=== PATIENT | female | born 1965 | race Caucasian/White ===

== ENCOUNTER → 2016-08-25 | Outpatient (CLI) | payer OTHER ==
[~2016-08-25] MED LIST: ARTHROTEC PO; ARTHTAB4 PO; BACL10TA2 OR; FLEXERIL OR; IBUP400T OR; IBUP80TA PO; LIDO1OIN2 TOP; LIDO5DIS EXT; MULTIVIT; MULTIVIT PO; NAPR500T OR; NEUR300C OR; NUCYNTA; OXYC5CAP4 OR; PERC5TAB8 OR; ROBA500T OR; SM I100T PO; SOMA350T PO; TIZA2CAP3 PO; TIZA4TAB OR; ZANA4CAP; biofreeze TD
--- NOTE | 2016-08-29 23:43 | ECWPNPC ---
PATIENT NAME: SHRAI ALVARADO : 1965 GENDER: FEMALE VISIT DATE: 08/25/2016 DISCHARGE DATE: 08/25/16 1523 VISIT LOCKED DATE TIME: PHYSICIAN: KENRICK VERNON RESOURCE: KENRICK VERNON REASON FOR APPOINTMENT 1. LOW BACK W/C HISTORY OF PRESENT ILLNESS HISTORY OF PRESENT ILLNESS: PAIN THE PATIENT DESCRIBES THE PAIN... 51 YEAR OLD FEMALE PATIENT WITH HISTORY OF CHRONIC BACK PAIN. PATIENT DESCRIBES THE PAIN ACHING, BURNING, SHARP, STABBING, THROBBING, SHOOTING, AND HAVING IT ALL THE TIME WITH FA PAIN SCORE OF 8/10. PATIENT WAS HURT IN A WORK RELATED INJURY AT [employer] WHEN SHE SLIPPED AND FELL. PATIENT RECEIVED A SACROILIAC JOINT INJECTION ON 07/14/16 WHICH SHE STATES INCREASED HER MOBILITY AND FUNCTIONALITY AND HELPED TO DECREASE HER PAIN. CURRENTLY THE PATIENT IS USING GABAPENTIN 800 MG 3 TIMES A DAY, IBUPROFEN 800 MG 3 TIMES A DAY, OXYCODONE 15 MG UP TO 5 TIMES A DAY, AND TYLENOL PM. MRS. ALVARADO STARTED USING CYMBALTA AND REPORTS HAVING DIARRHEA FROM THE MEDICATION AND DISCONTINUED IT. PATIENT REPORTS THAT THE MEDICATIONS HELPS TO TAKE THE EDGE OFF AND AT THIS TIME THE PATIENT HAS NO FOUND ANYTHING OTHER THEN THE MEDICATIONS THAT HELPS WITH PAIN RELIEF. MRS. ALVARADO REPORTS THAT ANY TYPE OF ACTIVITY INCLUDING SITTING, STANDING, AND WALKING INCREASES THE PAIN IN HER LOWER BACK. MRS. ALVARADO REPORTS HAVING HER PHYSICAL THERAPY APPROVED BY WORKERS COMPENSATION SO SHE WILL BEGIN THAT SHORTLY. PATIENT DENIES UNEXPLAINABLE WEIGHT LOSS, FEVER, CHILLS, NEW CHANGES ON HER URINARY OR BOWEL CONTROL. FALL RISK SCREENING: SCREENING :NO FALLS IN THE PAST YEAR CURRENT MEDICATIONS TAKING SKELAXIN 800 MG TABLET 1 TABLET ORALLY BEFORE BEDTIME FOR SPASMS AND PAIN MDD1, NOTES: NONE LATELY TAKING GABAPENTIN 800 MG TABLET 1 TABLET ORALLY THREE TIMES A DAY FOR PAIN, NOTES: 07/14/16 0100 TAKING IBUPROFEN 800 MG TABLET 1 TABLET ORALLY THREE TIMES A DAY PRAN FOR PAIN MDD3, NOTES: 07/13/16 2300 TAKING CYCLOBENZAPRINE HCL 10 MG TABLET 1 TABLET ORALLY FOR SPASMS AND PAIN WORKERS COMPENSATION BEFORE BEDTIME CAN REPEAT IN 4 HRS MDD2 TAKING OXYCODONE HCL 10 MG TABLET 1 ORALLY Q4H PRN PAIN MDD5 WORKERS COMPENSATION, NOTES: 07/14/16 1000 TAKING XANAX 0.25 MG TABLET 1 TABLET ORALLY THREE TIMES A DAY NOT-TAKING LIDODERM 5 % PATCH 1 -2 PATCH TO INTACT SKIN REMOVE AFTER 12 HOURS EXTERNALLY ON 12 HRS, OFF 12 HRS TO LOW BACK, NOTES: NONE DISCONTINUED CYMBALTA 30 MG CAPSULE DELAYED RELEASE PARTICLES 1 CAPSULE ORALLY TWICE A DAY FOR PAIN, NOTES: NONE DISCONTINUED TIZANIDINE HCL 2 MG TABLET 1 TAB(S) ORALLY BID, NOTES: NONE MEDICATION LIST REVIEWED AND RECONCILED WITH THE PATIENT PAST MEDICAL HISTORY CHRONIC LOW BACK AND LEG PAIN ALLERGIES SULFA (FOR ALLERGY USE ONLY): HIVES CYMBALTA: DIARRHEA, ABDOMINAL PAIN: SIDE EFFECTS SURGICAL HISTORY TUBALIGATION 1987 OVARIAN CYSTS 1995 LUMBAR SPINAL FUSION 2006 FAMILY HISTORY NO FAMILY HISTORY DOCUMENTED. SOCIAL HISTORY GENERAL: TOBACCO USE ARE YOU A:NONSMOKER LEARNING BARRIERS / SPECIAL NEEDS ORIENTED TO PLAN OF CARE: PATIENT, PAIN MANAGEMENT PATIENT, ORIENTED TO PLAN OF CARE: PATIENT, PAIN MANAGEMENT PATIENT. NEW PATIENT PAIN DIARY TODAY'S VISITNOTES FROM 0-10, WHAT LEVEL IS YOUR PAIN TODAY?0 PAIN CLINIC PFS, CLERGY, PUBLIC HEALTH REFERRALS PFS REFERRAL NEEDED?NO CLERGY REFERRAL NEEDED?NO PUBLIC HEALTH REFERRAL NEEDED?NO WAS THE PROVIDER NOTIFIED OF ANY PERTINENT INFO?NO PFS REFERRAL NEEDED?NO CLERGY REFERRAL NEEDED?NO PUBLIC HEALTH REFERRAL NEEDED?NO WAS THE PROVIDER NOTIFIED OF ANY PERTINENT INFO?NO HOSPITALIZATION/MAJOR DIAGNOSTIC PROCEDURE SEE ABOVE REVIEW OF SYSTEMS CONSTITUTIONAL: ANY CHANGE IN YOUR MEDICAL CONDITION? NO . CHILLS NO . FEVER NO . INFECTION: DO YOU HAVE NEW INFECTIONS? NO . DO YOU HAVE HISTORY OF MRSA? NO . MUSCULOSKELETAL: ANY NEW PATTERNS OF PAIN OR NUMBNESS? NO . GASTROENTEROLOGY: ANY NEW CHANGE IN BOWEL CONTROL? NO . GENITOURINARY: ANY NEW CHANGE IN BLADDER CONTROL? NO . IS THERE A CHANCE YOU COULD BE ? NO . HEMATOLOGY/LYMPH: DO YOU TAKE ANY BLOOD THINNERS? (FOR EXAMPLE- COUMADIN, PLAVIX, AGGRENOX, PLATEL, PRADAXA, OR XARELTO) NO . WHEN WAS YOUR LAST DOSE? DATE: TIME: . NEUROLOGY: HAVE YOU FALLEN IN THE PAST 6 MONTHS? YES . ANY NEW EXTREMITY NUMBNESS OR WEAKNESS? NO . CARDIOLOGY: DO YOU HAVE A PACEMAKER OR DEFIBRILLATOR? NO . RESPIRATORY: HAVE YOU BEEN SICK IN THE PAST WEEK? NO . FEVER NO . FLU LIKE SYMPTOMS? NO . COUGH NO . INTEGUMENTARY: DO YOU HAVE ANY RASHES OR OPEN SORES? NO . ALLERGIC/IMMUNO: ARE YOU ALLERGIC TO SHELLFISH OR IV DYE? NO . ANY NEW ALLERGIES? NO . PSYCHIATRIC: DO YOU HAVE THOUGHTS OF HURTING YOURSELF OR SOMEONE ELSE? NO . ARE YOU ABUSED, NEGLECTED, OR IN AN UNSAFE ENVIRONMENT? NO . ENDOCRINOLOGY: ARE YOU DIABETIC? NO . OTHER: DO YOU NEED ANY PRESCRIPTIONS? NO . IF YES, PLEASE LIST: ____ . ANY NEW PROBLEMS WITH YOUR MEDICATIONS? NO . WHEN DID YOU LAST EAT? ____ . WHEN DID YOU LAST DRINK? ____ . WHAT DID YOU LAST DRINK? ____ . NAME OF PERSON DRIVING YOU HOME? ____ . DO YOU HAVE ANY OTHER QUESTIONS OR CONCERNS YES, MY TUESDAY HAD TO GO TO [facility] TO GET XANAX. . REVIEWED BY: PROVIDER: KENRICK VERNON MD . VITAL SIGNS WT 115 LBS, HT 61 IN, BMI 21.73 INDEX, BP 136/93 MM HG, HR 92 /MIN, RR 16 /MIN, TEMP 97.6 F, OXYGEN SAT % 96%, REVIEWED BY: SAMIA. EXAMINATION : PATIENT IS ALERT O X 3 AND COOPERATIVE. PATIENTS RIGHT LEG IS WEAKER THEN THE LEFT LEG BUT BOTH LEGS HAVE A LOT OF WEAKNESS. PATIENT HAD DIFFICULTY STANDING, WALKING, AND BENDING AND CONSTANTLY CHANGING POSITIONS. UNABLE TO STAND UP STRAIGHT. USES TENS UNIT 14/02. MRI DONE ON 12/21/14 OF THE LUMBAR SPINE SHOWS POST LAMINECTOMY CHANGES ALONG WITH A CENTRAL DISC PROTRUSION AT L4-L5 WITH RIGHT LATERAL RECESS NARROWING, MILD CENTRAL CANAL STENOSIS AND MODERATE LEFT SIDED RECESS NARROWING. THERE IS SEVERE TENDERNESS AT THE RIGHT AND LEFT SACROILIAC JOINT. 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 ALVARADO'S PAIN MANAGEMENT CASE. AT THIS TIME THE PATIENT WILL CONTINUE WITH THE SAME MEDIATION REGIME BEFORE. PATIENT DENIES ABUSE OF ANY MEDICATION, DENIES USE OF ILLEGAL SUBSTANCES, AND STATES THAT SHE IS ONLY USING THE MEDICATION FOR PAIN MANAGEMENT. PATIENT REPORTS BEING PRESCRIBED XANAX DUE TO HER PASSING AWAY SUDDENLY. PATIENT IS A AWARE THAT SHE SHOULD BE CAUTIOUS WHEN USING THE XANAX AT NARCOTICS AT THE SAME TIME. MRS. ALVARADO REPORTS UNDERSTANDING AND USING THE MEDICATION IN A SAFE WAY. PATIENT REPORTS THE SACROILIAC JOINT BLOCK AIDING IN PAIN RELIEF AND INCREASING HER MOBILITY AND FUNCTIONALITY AT THIS TIME. PATIENT REPORTS HER PAIN BEING MANAGEABLE AND DOES NOT WANT TO MOVE FORWARD WITH AN INTERVENTION AT THIS TIME. PATIENT WILL RETURN TO THE CLINIC IN 6 WEEKS BUT WAS ADVISED TO CALL IF HER PAIN BECOMES SEVERE BEFORE HER APPOINTMENT. INSTRUCTIONS WERE GIVEN, QUESTIONS WERE ANSWERED, PATIENT REPORTS UNDERSTANDING AND AGREES WITH THE PLAN. I, FABRIZIO BURCH, DOCUMENTED THE ABOVE INFORMATION ACTING A SCRIBE FOR DR. VERNON. I HAVE REVIEWED THE ABOVE DOCUMENT, WRITTEN BY FABRIZIO SANDERSIBDeb AND I VERIFY THAT IT IS ACCURATE. OTHERS REFILL GABAPENTIN TABLET, 800 MG, 1 TABLET, ORALLY, THREE TIMES A DAY FOR PAIN, 30 DAY(S), 90, REFILLS 2, NOTES: 07/14/16 0100 REFILL IBUPROFEN TABLET, 800 MG, 1 TABLET, ORALLY, THREE TIMES A DAY PRAN FOR PAIN MDD3, 30 DAY(S), 90, REFILLS 0, NOTES: 07/13/16 2300 REFILL CYCLOBENZAPRINE HCL TABLET, 10 MG, 1 TABLET, ORALLY FOR SPASMS AND PAIN WORKERS COMPENSATION, BEFORE BEDTIME CAN REPEAT IN 4 HRS MDD2, 30 DAY(S), 50, REFILLS 2 REFILL OXYCODONE HCL TABLET, 10 MG, 1, ORALLY CHRONIC PAIN CODE D, Q4H PRN PAIN MDD5 WORKERS COMPENSATION, 60 DAYS, 300, REFILLS 0, NOTES: 07/14/16 1000 PROCEDURES PN WORKMANS' COMP OPINION IN YOUR OPINION, WAS THE INCIDENT THAT THE PATIENT DESCRIBED THE COMPETENT MEDICAL CAUSE OF THIS INJURY/ILLNESS? YES ARE THE PATIENT'S COMPLAINTS CONSISTENT WITH HIS/HER HISTORY OF THE INJURY/ILLNESS? YES IS THE PATIENT'S HISTORY OF THE INJURY/ILLNESS CONSISTENT WITH YOUR OBJECTIVE FINDING? YES WHAT IS THE PERCENTAGE OF TEMPORARY IMPAIRMENT? TOTAL = 100% IS THE PATIENT WORKING? NO DOCTOR ON SITE: KENRICK CASTILLO MD PROCEDURE CODES G8427 DOC MEDS VERIFIED W/PT OR RE G8730 PAIN ASSESS POS TOOL F/U PLAN DOC FOLLOW UP 3 WEEKS ELECTRONICALLY SIGNED BY KENRICK VERNON MD ON 08/29/2016 AT 08:13 PM EST DISCLAIMER : THIS IS A VISIT SUMMARY EXTRACTED FROM THE [employer] CHART. IT IS NOT A COPY OF THE [employer] PROGRESS NOTE. MARTIN
== END ==
LOC: M PAIN 09:40
PROVIDERS: ATTEND Anesthesiology
DX: M96.1 Postlaminectomy syndrome, not elsewhere classified (principal); M46.1 Sacroiliitis, not elsewhere classified; M54.5 Low back pain; G89.29 Other chronic pain; Z79.891 Long term (current) use of opiate analgesic; Z79.899 Other long term (current) drug therapy; Z88.2 Allergy status to sulfonamides; Z88.8 Allergy status to other drugs, medicaments and biological substances

== ENCOUNTER → 2016-10-13 | Outpatient (CLI) | payer OTHER | END | disposition home or self-care (01) | LOC: M PAIN 14:00 | PROVIDERS: ATTEND Anesthesiology | DX: Z09 Encounter for follow-up examination after completed treatment for conditions other than malignant neoplasm (principal); G89.29 Other chronic pain; M96.1 Postlaminectomy syndrome, not elsewhere classified; M51.16 Intervertebral disc disorders with radiculopathy, lumbar region; M51.17 Intervertebral disc disorders with radiculopathy, lumbosacral region; M79.605 Pain in left leg; M79.604 Pain in right leg; Z79.899 Other long term (current) drug therapy; Z88.2 Allergy status to sulfonamides; Z88.8 Allergy status to other drugs, medicaments and biological substances ==

== ENCOUNTER → 2016-12-17 | Outpatient (CLI) | payer OTHER ==
--- NOTE | 2016-12-29 02:15 | ECWPNPC ---
PATIENT NAME: SHARI ALVARADO : 1965 GENDER: FEMALE VISIT DATE: 12/17/2016 DISCHARGE DATE: 12/17/16 1524 VISIT LOCKED DATE TIME: PHYSICIAN: KENRICK VERNON RESOURCE: KENRICK VERNON REASON FOR APPOINTMENT 1. W/C BACK AND RIGHT HIP HISTORY OF PRESENT ILLNESS HISTORY OF PRESENT ILLNESS: PAIN THE PATIENT DESCRIBES THE PAIN... 51 YEAR OLD FEMALE PATIENT WITH HISTORY OF CHRONIC BACK PAIN. PATIENT DESCRIBES THE PAIN ACHING, BURNING, IT COMES AND GOES, SHARP, STABBING, THROBBING, SHOOTING, AND HAVING IT ALL THE TIME WITH A PAIN SCORE OF 8/10 ON TODAY'S VISIT. 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 PATIENT REPORTS THAT SHE HAS TRIED PT IN THE PAST WITH OUT ANY IMPROVEMENTS. PATIENT STATES THAT SHE HAD BACK SURGERY IN 2006. PATIENT REPORTS OF RADIATING PAIN DOWN BOTH LEGS FROM HER BACK. PATIENT DENIES UNEXPLAINABLE WEIGHT LOSS, FEVER, CHILLS, NEW CHANGES ON HER URINARY OR BOWEL CONTROL. FALL RISK SCREENING: SCREENING :NO FALLS IN THE PAST YEAR CURRENT MEDICATIONS TAKING GABAPENTIN 800 MG TABLET 1 TABLET ORALLY THREE TIMES A DAY FOR PAIN TAKING IBUPROFEN 800 MG TABLET 1 TABLET ORALLY THREE TIMES A DAY PRAN FOR PAIN MDD3 TAKING CYCLOBENZAPRINE HCL 10 MG TABLET 1 TABLET ORALLY FOR SPASMS AND PAIN WORKERS COMPENSATION BEFORE BEDTIME CAN REPEAT IN 4 HRS MDD2 TAKING OXYCODONE HCL 10 MG TABLET 1 ORALLY CHRONIC PAIN CODE D Q4H PRN PAIN MDD5 WORKERS COMPENSATION TAKING XANAX 0.25 MG TABLET 1 TABLET ORALLY THREE TIMES A DAY NOT-TAKING LIDODERM 5 % PATCH 1 -2 PATCH TO INTACT SKIN REMOVE AFTER 12 HOURS EXTERNALLY ON 12 HRS, OFF 12 HRS TO LOW BACK, NOTES: NONE DISCONTINUED SKELAXIN 800 MG TABLET 1 TABLET ORALLY BEFORE BEDTIME FOR SPASMS AND PAIN MDD1 MEDICATION LIST REVIEWED AND RECONCILED WITH THE PATIENT PAST MEDICAL HISTORY CHRONIC LOW BACK AND LEG PAIN ALLERGIES SULFA (FOR ALLERGY USE ONLY): HIVES CYMBALTA: DIARRHEA, ABDOMINAL PAIN: SIDE EFFECTS SURGICAL HISTORY NO SURGICAL HISTORY DOCUMENTED. FAMILY HISTORY NO FAMILY HISTORY DOCUMENTED. SOCIAL HISTORY GENERAL: TOBACCO USE ARE YOU A:NONSMOKER RECREATIONAL DRUG USE DRUG USE?NO CAFFEINE CAFFEINE USE?NO PSYCHOLOGICAL HX TREATMENTNO PAIN CLINIC PFS, CLERGY, PUBLIC HEALTH REFERRALS CLERGY REFERRAL NEEDED?NO WAS THE PROVIDER NOTIFIED OF ANY PERTINENT INFO?NO PFS REFERRAL NEEDED?NO PUBLIC HEALTH REFERRAL NEEDED?NO PATIENT: ____. ADVANCED DIRECTIVES HEALTH CARE PROXY?NO POWER OF FINISH INSPECTOR?NO HOSPITALIZATION/MAJOR DIAGNOSTIC PROCEDURE NO HOSPITALIZATION HISTORY. REVIEW OF SYSTEMS CONSTITUTIONAL: ANY CHANGE IN YOUR MEDICAL CONDITION? NO . CHILLS NO . FEVER NO . INFECTION: DO YOU HAVE NEW INFECTIONS? NO . DO YOU HAVE HISTORY OF MRSA? NO . MUSCULOSKELETAL: ANY NEW PATTERNS OF PAIN OR NUMBNESS? NO . GASTROENTEROLOGY: ANY NEW CHANGE IN BOWEL CONTROL? NO . GENITOURINARY: ANY NEW CHANGE IN BLADDER CONTROL? NO . IS THERE A CHANCE YOU COULD BE ? NO . HEMATOLOGY/LYMPH: DO YOU TAKE ANY BLOOD THINNERS? (FOR EXAMPLE- COUMADIN, PLAVIX, AGGRENOX, PLATEL, PRADAXA, OR XARELTO) NO . WHEN WAS YOUR LAST DOSE? DATE: TIME: . NEUROLOGY: HAVE YOU FALLEN IN THE PAST 6 MONTHS? NO . ANY NEW EXTREMITY NUMBNESS OR WEAKNESS? NO . CARDIOLOGY: DO YOU HAVE A PACEMAKER OR DEFIBRILLATOR? NO . RESPIRATORY: HAVE YOU BEEN SICK IN THE PAST WEEK? NO . FEVER NO . FLU LIKE SYMPTOMS? NO . COUGH NO . INTEGUMENTARY: DO YOU HAVE ANY RASHES OR OPEN SORES? NO . ALLERGIC/IMMUNO: ARE YOU ALLERGIC TO SHELLFISH OR IV DYE? NO . ANY NEW ALLERGIES? NO . PSYCHIATRIC: DO YOU HAVE THOUGHTS OF HURTING YOURSELF OR SOMEONE ELSE? NO . ARE YOU ABUSED, NEGLECTED, OR IN AN UNSAFE ENVIRONMENT? NO . ENDOCRINOLOGY: ARE YOU DIABETIC? NO . OTHER: DO YOU NEED ANY PRESCRIPTIONS? YES, GABAPENTIN, IBUPROFEN, OXYCODONE . IF YES, PLEASE LIST: ____ . ANY NEW PROBLEMS WITH YOUR MEDICATIONS? NO . WHEN DID YOU LAST EAT? ____ . WHEN DID YOU LAST DRINK? ____ . WHAT DID YOU LAST DRINK? ____ . NAME OF PERSON DRIVING YOU HOME? ____ . DO YOU HAVE ANY OTHER QUESTIONS OR CONCERNS NO . REVIEWED BY: PROVIDER: KENRICK VERNON MD . VITAL SIGNS WT 109 LBS, HT 61 IN, BMI 20.59 INDEX, BP 125/69 MM HG, HR 65 /MIN, RR 16 /MIN, TEMP 97.4 F, OXYGEN SAT % 98, NA INITIALS AW 1420, REVIEWED BY: CM. EXAMINATION : PATIENT IS ALERT O X 3 AND COOPERATIVE. THERE IS TENDERNESS IN THE SACROILIAC AREA. FABERE TEST IS POSITIVE FOR PAIN IN BOTH LEGS. MRI OF THE LUMBAR SPINE DONE ON 12/13/2014 SHOWS POST LAMINECTOMY CHANGES AT L5-S1 AND A CENTRAL DISC PROTRUSION AT L4-L5 WITH CANAL STENOSIS. ASSESSMENTS SACROILIITIS, NOT ELSEWHERE CLASSIFIED - M46.1 (PRIMARY) TREATMENT SACROILIITIS, NOT ELSEWHERE CLASSIFIED NOTES: WE DISCUSSED SEVERAL ISSUES WITH MRS. ALVARADO'S PAIN MANAGEMENT CASE. AT THIS TIME THE PATIENT WILL RECEIVE A REFILL OF GABAPENTIN, IBUPROFEN, CYCLOBENZAPRINE, AND OXYCODONE TODAY. PATIENT IS TAKING GABAPENTIN FOR NEUROPATHIC PAIN; IBUPROFEN, CYCLOBENZAPRINE, AND OXYCODONE FOR SOMATIC PAIN. I DISCUSSED WITH THE PATIENT ABOUT STOPPING IBUPROFEN FOR A MONTH TO GIVE HER STOMACH A BREAK. AFTER EXAMINING THE PATIENT SHE IS A GOOD CANDIDATE FOR BILATERAL SACROILIAC JOINT BLOCK. WE DISCUSSED THE RISK, BENEFITS, AND ALTERNATIVES AND THE PATIENT WOULD LIKE TO PROCEED. PATIENT WILL BE BOOKED PENDING APPROVAL. UTOX ORDERED ON 04-20-2016 SHOWS CONSISTENT RESULTS. I WILL ORDER ANOTHER UTOX TODAY. PATIENT WILL FOLLOW UP WITH ME IN 3 WEEKS. INSTRUCTIONS WERE GIVEN, QUESTIONS WERE ANSWERED, PATIENT REPORTS UNDERSTANDING AND AGREES WITH THE PLAN. I, ROSALINDA RAMIREZ, DOCUMENTED THE ABOVE INFORMATION ACTING A SCRIBE FOR DR. VERNON. I HAVE REVIEWED THE ABOVE DOCUMENT, WRITTEN BY ROSALINDA SANDERSIBDeb AND I VERIFY THAT IT IS ACCURATE. OTHERS REFILL GABAPENTIN TABLET, 800 MG, 1 TABLET, ORALLY, THREE TIMES A DAY FOR PAIN, 30 DAY(S), 90, REFILLS 2 REFILL IBUPROFEN TABLET, 800 MG, 1 TABLET, ORALLY WITH FOOD, THREE TIMES A DAY PRN FOR PAIN MDD3, 30 DAY(S), 50, REFILLS 1 REFILL CYCLOBENZAPRINE HCL TABLET, 10 MG, 1 TABLET, ORALLY FOR SPASMS AND PAIN WORKERS COMPENSATION, BEFORE BEDTIME CAN REPEAT IN 4 HRS MDD2, 30 DAY(S), 50, REFILLS 2 REFILL OXYCODONE HCL TABLET, 10 MG, 1, ORALLY, Q4H PRN PAIN MDD5 WORKERS COMPENSATION, 30 DAY(S), 150, REFILLS 0 PROCEDURES PN WORKMANS' COMP OPINION IN YOUR OPINION, WAS THE INCIDENT THAT THE PATIENT DESCRIBED THE COMPETENT MEDICAL CAUSE OF THIS INJURY/ILLNESS? YES ARE THE PATIENT'S COMPLAINTS CONSISTENT WITH HIS/HER HISTORY OF THE INJURY/ILLNESS? YES IS THE PATIENT'S HISTORY OF THE INJURY/ILLNESS CONSISTENT WITH YOUR OBJECTIVE FINDING? YES WHAT IS THE PERCENTAGE OF TEMPORARY IMPAIRMENT? TOTAL = 100% IS THE PATIENT WORKING? NO DOCTOR ON SITE: KENRICK CASTILLO MD PROCEDURE CODES FA211 ESTABILISHED PATIENT [facility] CHARGE G8730 PAIN ASSESS POS TOOL F/U PLAN DOC G8427 DOC MEDS VERIFIED W/PT OR RE DISPOSITION & COMMUNICATION FOLLOW UP 3 WEEKS ELECTRONICALLY SIGNED BY KENRICK VERNON MD ON 12/28/2016 AT 07:48 PM EDT DISCLAIMER : THIS IS A VISIT SUMMARY EXTRACTED FROM THE [employer] CHART. IT IS NOT A COPY OF THE [employer] PROGRESS NOTE. MTDSami
== END ==
LOC: M PAIN 14:00
PROVIDERS: ATTEND Anesthesiology
DX: G89.29 Other chronic pain (principal); M46.1 Sacroiliitis, not elsewhere classified; Z88.2 Allergy status to sulfonamides; Z88.8 Allergy status to other drugs, medicaments and biological substances; Z79.1 Long term (current) use of non-steroidal anti-inflammatories (NSAID); Z79.891 Long term (current) use of opiate analgesic; Z79.899 Other long term (current) drug therapy

== ENCOUNTER → 2017-01-07 | Outpatient (CLI) | payer OTHER ==
--- NOTE | 2017-01-15 00:12 | ECWPNPC ---
PATIENT NAME: SHARI ALVARADO : 1965 GENDER: FEMALE VISIT DATE: 01/07/2017 DISCHARGE DATE: 01/07/17 0950 VISIT LOCKED DATE TIME: PHYSICIAN: KENRICK VERNON RESOURCE: KENRICK VERNON REASON FOR APPOINTMENT 1. W/C BACK HISTORY OF PRESENT ILLNESS HISTORY OF PRESENT ILLNESS: PAIN THE PATIENT DESCRIBES THE PAIN... 51 YEAR OLD FEMALE PATIENT WITH HISTORY OF CHRONIC BACK PAIN. PATIENT DESCRIBES THE PAIN ACHING, BURNING, SHARP, STABBING, TENDER, THROBBING, SHOOTING, IT COMES AND GOES, AND HAVING IT ALL THE TIME WITH A PAIN SCORE OF 8/10 ON TODAY'S VISIT. 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 PATIENT REPORTS THAT SHE HAS TRIED PT IN THE PAST WITH OUT ANY IMPROVEMENTS. PATIENT STATES THAT SHE HAD BACK SURGERY IN 2006. PATIENT REPORTS OF RADIATING PAIN DOWN THE LEGS AND UP HER BACK FROM HER LOW BACK. PATIENT STATES THAT SHE HAS DIFFICULTIES ACHIEVING DAILY ACTIVITIES AND CHORES DUE TO THE PAIN. PATIENT DENIES UNEXPLAINABLE WEIGHT LOSS, FEVER, CHILLS, NEW CHANGES ON HER URINARY OR BOWEL CONTROL. FALL RISK SCREENING: SCREENING :NO FALLS IN THE PAST YEAR CURRENT MEDICATIONS TAKING GABAPENTIN 800 MG TABLET 1 TABLET ORALLY THREE TIMES A DAY FOR PAIN TAKING IBUPROFEN 800 MG TABLET 1 TABLET ORALLY WITH FOOD THREE TIMES A DAY PRN FOR PAIN MDD3 TAKING CYCLOBENZAPRINE HCL 10 MG TABLET 1 TABLET ORALLY FOR SPASMS AND PAIN WORKERS COMPENSATION BEFORE BEDTIME CAN REPEAT IN 4 HRS MDD2 TAKING OXYCODONE HCL 10 MG TABLET 1 ORALLY Q4H PRN PAIN MDD5 WORKERS COMPENSATION NOT-TAKING XANAX 0.25 MG TABLET 1 TABLET ORALLY THREE TIMES A DAY NOT-TAKING LIDODERM 5 % PATCH 1 -2 PATCH TO INTACT SKIN REMOVE AFTER 12 HOURS EXTERNALLY ON 12 HRS, OFF 12 HRS TO LOW BACK, NOTES: NONE MEDICATION LIST REVIEWED AND RECONCILED WITH THE PATIENT PAST MEDICAL HISTORY CHRONIC LOW BACK AND LEG PAIN ALLERGIES SULFA (FOR ALLERGY USE ONLY): HIVES CYMBALTA: DIARRHEA, ABDOMINAL PAIN: SIDE EFFECTS SURGICAL HISTORY NO SURGICAL HISTORY DOCUMENTED. FAMILY HISTORY NO FAMILY HISTORY DOCUMENTED. SOCIAL HISTORY GENERAL: TOBACCO USE ARE YOU A:CURRENT SMOKER HOW MANY CIGARETTES A DAY DO YOU SMOKE?11-20 HOW SOON AFTER YOU WAKE UP DO YOU SMOKE YOUR FIRST CIGARETTE?WITHIN 5 MIN HOW OFTEN DO YOU SMOKE CIGARETTES?EVERY DAY PATIENT COUNSELED ON THE DANGERS OF TOBACCO USE AND URGED TO QUIT:01/07/2017 ARE YOU INTERESTED IN QUITTING?THINKING ABOUT QUITTING CAN'T AFFORD THE CHANTIX THAT SHE HAD A SCRIPT FOR PREVIOUS QUIT ATTEMPTS?YES, WITHIN THE LAST 6 MONTHS. COUNSELED THE PATIENT ON SMOKING CESSATION, EDUCATION [id number]/2017 RECREATIONAL DRUG USE DRUG USE?NO CAFFEINE CAFFEINE USE?NO PSYCHOLOGICAL HX TREATMENTNO PAIN CLINIC PFS, CLERGY, PUBLIC HEALTH REFERRALS CLERGY REFERRAL NEEDED?NO WAS THE PROVIDER NOTIFIED OF ANY PERTINENT INFO?NO PFS REFERRAL NEEDED?NO PUBLIC HEALTH REFERRAL NEEDED?NO PATIENT: ____. ADVANCE DIRECTIVES HEALTH CARE PROXY?NO POWER OF PIPELINE SUPERINTENDENT?NO HOSPITALIZATION/MAJOR DIAGNOSTIC PROCEDURE NO HOSPITALIZATION HISTORY. REVIEW OF SYSTEMS REVIEWED BY: PROVIDER: KENRICK VERNON MD . CONSTITUTIONAL: ANY CHANGE IN YOUR MEDICAL CONDITION? NO . CHILLS NO . FEVER NO . INFECTION: DO YOU HAVE NEW INFECTIONS? NO . DO YOU HAVE HISTORY OF MRSA? NO . MUSCULOSKELETAL: ANY NEW PATTERNS OF PAIN OR NUMBNESS? NO . GASTROENTEROLOGY: ANY NEW CHANGE IN BOWEL CONTROL? NO . GENITOURINARY: ANY NEW CHANGE IN BLADDER CONTROL? NO . IS THERE A CHANCE YOU COULD BE ? NO . HEMATOLOGY/LYMPH: DO YOU TAKE ANY BLOOD THINNERS? (FOR EXAMPLE- COUMADIN, PLAVIX, AGGRENOX, PLATEL, PRADAXA, OR XARELTO) NO . WHEN WAS YOUR LAST DOSE? DATE: TIME: . NEUROLOGY: HAVE YOU FALLEN IN THE PAST 6 MONTHS? NO . ANY NEW EXTREMITY NUMBNESS OR WEAKNESS? NO . CARDIOLOGY: DO YOU HAVE A PACEMAKER OR DEFIBRILLATOR? NO . RESPIRATORY: HAVE YOU BEEN SICK IN THE PAST WEEK? NO . FEVER NO . FLU LIKE SYMPTOMS? NO . COUGH NO . INTEGUMENTARY: DO YOU HAVE ANY RASHES OR OPEN SORES? NO . ALLERGIC/IMMUNO: ARE YOU ALLERGIC TO SHELLFISH OR IV DYE? NO . ANY NEW ALLERGIES? NO . PSYCHIATRIC: DO YOU HAVE THOUGHTS OF HURTING YOURSELF OR SOMEONE ELSE? NO . ARE YOU ABUSED, NEGLECTED, OR IN AN UNSAFE ENVIRONMENT? NO . ENDOCRINOLOGY: ARE YOU DIABETIC? NO . OTHER: DO YOU NEED ANY PRESCRIPTIONS? YES . IF YES, PLEASE LIST: OXYCODONE . ANY NEW PROBLEMS WITH YOUR MEDICATIONS? NO . WHEN DID YOU LAST EAT? ____ . WHEN DID YOU LAST DRINK? ____ . WHAT DID YOU LAST DRINK? ____ . NAME OF PERSON DRIVING YOU HOME? ____ . DO YOU HAVE ANY OTHER QUESTIONS OR CONCERNS NO . VITAL SIGNS WT 106 LBS, HT 61 IN, BMI 20.03 INDEX, BP 123/85 MM HG, HR 79 /MIN, RR 16 /MIN, TEMP 97.0 F, OXYGEN SAT % 93, NA INITIALS AW 0938, REVIEWED BY: AD. EXAMINATION : PATIENT IS ALERT O X 3 AND COOPERATIVE. PATIENT HAS DIFFICULTIES STANDING UP FOR THE EXAMINATION. PATIENT AMBULATES IN A FLEX POSTION WITH AN ANTALGIC GAIT. PATIENT'S RIGHT LEG IS WEAKER AT FLEXION AND EXTENSION COMPARED TO THE LEFT LEG. PATIENT IS USING A TENS UNITS FOR THE PAIN. THERE IS TENDERNESS IN THE SACROILIAC JOINTS. MRI OF THE LUMBAR SPINE DONE ON 12/13/2014. ASSESSMENTS SACROILIITIS, NOT ELSEWHERE CLASSIFIED - M46.1 (PRIMARY) TREATMENT SACROILIITIS, NOT ELSEWHERE CLASSIFIED NOTES: WE DISCUSSED SEVERAL ISSUES WITH MS. ALVARADO'S PAIN MANAGEMENT CASE. AT THIS TIME THE PATIENT WILL CONTINUE ON THE SAME MEDICATION REGIMEN BEFORE. I DISCUSSED WITH THE PATIENT THAT SHE IS A GOOD CANDIDATE FOR A SACROILIAC JOINT INJECTION AND HER COMP CARRIER HAS PARTIALLY APPROVED THE PROCEDURE FOR A RIGHT SIJ. WE DISCUSSED THE RISK, BENEFITS, AND ALTERNATIVES AND THE PATIENT WOULD LIKE TO PROCEED. PATIENT WILL BE BOOKED TODAY. PATIENT WILL FOLLOW UP WITH ME IN 6 WEEKS, INSTRUCTIONS WERE GIVEN, QUESTIONS WERE ANSWERED, PATIENT REPORTS UNDERSTANDING AND AGREES WITH THE PLAN. I, ROSALINDA RAMIREZ, DOCUMENTED THE ABOVE INFORMATION ACTING A SCRIBE FOR DR. VERNON. I HAVE REVIEWED THE ABOVE DOCUMENT, WRITTEN BY ROSALINDA RAMIREZ SCRIBDeb AND I VERIFY THAT IT IS ACCURATE. OTHERS REFILL GABAPENTIN TABLET, 800 MG, 1 TABLET, ORALLY, THREE TIMES A DAY FOR PAIN, 30 DAY(S), 90, REFILLS 2 REFILL IBUPROFEN TABLET, 800 MG, 1 TABLET, ORALLY WITH FOOD, THREE TIMES A DAY PRN FOR PAIN MDD3, 30 DAY(S), 50, REFILLS 1 REFILL CYCLOBENZAPRINE HCL TABLET, 10 MG, 1 TABLET, ORALLY FOR SPASMS AND PAIN WORKERS COMPENSATION, BEFORE BEDTIME CAN REPEAT IN 4 HRS MDD2, 30 DAY(S), 50, REFILLS 2 REFILL OXYCODONE HCL TABLET, 10 MG, 1, ORALLY, Q4H PRN PAIN MDD5 WORKERS COMPENSATION, 30 DAY(S), 150, REFILLS 0 PROCEDURES PN WORKMANS' COMP OPINION IN YOUR OPINION, WAS THE INCIDENT THAT THE PATIENT DESCRIBED THE COMPETENT MEDICAL CAUSE OF THIS INJURY/ILLNESS? YES ARE THE PATIENT'S COMPLAINTS CONSISTENT WITH HIS/HER HISTORY OF THE INJURY/ILLNESS? YES IS THE PATIENT'S HISTORY OF THE INJURY/ILLNESS CONSISTENT WITH YOUR OBJECTIVE FINDING? YES WHAT IS THE PERCENTAGE OF TEMPORARY IMPAIRMENT? TOTAL = 100% IS THE PATIENT WORKING? NO DOCTOR ON SITE: KENRICK CASTILLO MD PREVENTIVE MEDICINE PAIN CLINIC TEACHING: PROCEDURE TEACHING PRE SACROILIAC JOINT INJECTION INSTRUCTIONS REVIEWED WITH PT. VERBLLIZED UNDERSTANDING.. PROCEDURE CODES FA211 ESTABILISHED PATIENT [facility] CHARGE G8730 PAIN ASSESS POS TOOL F/U PLAN DOC G8427 DOC MEDS VERIFIED W/PT OR RE DISPOSITION & COMMUNICATION FOLLOW UP 6 WEEKS ELECTRONICALLY SIGNED BY KENRICK VERNON MD ON 01/14/2017 AT 12:41 PM EDT DISCLAIMER : THIS IS A VISIT SUMMARY EXTRACTED FROM THE [employer] CHART. IT IS NOT A COPY OF THE [employer] PROGRESS NOTE. MARTIN
== END ==
LOC: M PAIN 08:50
PROVIDERS: ATTEND Anesthesiology
DX: G89.29 Other chronic pain (principal); M46.1 Sacroiliitis, not elsewhere classified; F17.210 Nicotine dependence, cigarettes, uncomplicated; Z79.891 Long term (current) use of opiate analgesic; Z79.1 Long term (current) use of non-steroidal anti-inflammatories (NSAID); Z79.899 Other long term (current) drug therapy; Z88.2 Allergy status to sulfonamides; Z88.8 Allergy status to other drugs, medicaments and biological substances

== ENCOUNTER → 2017-02-22 | Outpatient (CLI) | payer OTHER ==
[~2017-02-22] MED LIST changes: +BUPIVACAINE HCL 0.25% 30 ML VIAL As Ordered ONE; +ISOVUE-M 300 61% 15ML VIAL (Q9967) As Ordered ONE; +LIDOCAINE 1% SDV INJ 30 ML VIAL As Ordered ONE; +TRIAMCINOLONE ACETONIDE SUSP 40 MG/ML VIAL (J3301) As Ordered ONE; +diazePAM 5 MG TAB As Ordered ONE; +oxyCODONE 5MG TAB As Ordered ONE
--- NOTE | 2017-02-22 14:32 | REP ---
FLUOROSCOPIC GUIDANCE: The images were reviewed with Dr. Pierre. The patient has a history of back pain. The portable C-arm is provided in the OR for Dr. Zepeda for fluoroscopic guidance. Two intraoperative fluoroscopic spot films are obtained for needle placement verification for bilateral sacroiliac joint injection. The films are on the PACS system and are available for review. 12 seconds of fluoroscopy time was utilized for this procedure. Reviewed by HEIDY Florez 02/22/2017 03:06 PEdited and Signed by Silas Pierre MD 02/22/2017 07:16 P
--- NOTE | 2017-03-09 00:24 | ECWPNPC ---
PATIENT NAME: SHARI ALVARADO : 1965 GENDER: FEMALE VISIT DATE: 02/22/2017 DISCHARGE DATE: 02/22/17 1202 VISIT LOCKED DATE TIME: PHYSICIAN: KENRICK VERNON RESOURCE: KENRICK VERNON REASON FOR APPOINTMENT 1. SIJ HISTORY OF PRESENT ILLNESS HISTORY OF PRESENT ILLNESS: PAIN THE PATIENT DESCRIBES THE PAIN... FALL RISK SCREENING: SCREENING :NO FALLS IN THE PAST YEAR CURRENT MEDICATIONS TAKING GABAPENTIN 800 MG TABLET 1 TABLET ORALLY THREE TIMES A DAY FOR PAIN, NOTES: [id number] TAKING IBUPROFEN 800 MG TABLET 1 TABLET ORALLY WITH FOOD THREE TIMES A DAY PRN FOR PAIN MDD3, NOTES: 02-21-172099 TAKING CYCLOBENZAPRINE HCL 10 MG TABLET 1 TABLET ORALLY FOR SPASMS AND PAIN WORKERS COMPENSATION BEFORE BEDTIME CAN REPEAT IN 4 HRS MDD2, NOTES: 02-21-172099 TAKING OXYCODONE HCL 10 MG TABLET 1 ORALLY Q4H PRN PAIN MDD5 WORKERS COMPENSATION, NOTES: 02-22-17 0600 NOT-TAKING XANAX 0.25 MG TABLET 1 TABLET ORALLY THREE TIMES A DAY NOT-TAKING LIDODERM 5 % PATCH 1 -2 PATCH TO INTACT SKIN REMOVE AFTER 12 HOURS EXTERNALLY ON 12 HRS, OFF 12 HRS TO LOW BACK, NOTES: NONE MEDICATION LIST REVIEWED AND RECONCILED WITH THE PATIENT PAST MEDICAL HISTORY CHRONIC LOW BACK AND LEG PAIN ALLERGIES SULFA (FOR ALLERGY USE ONLY): HIVES CYMBALTA: DIARRHEA, ABDOMINAL PAIN: SIDE EFFECTS REVIEW OF SYSTEMS REVIEWED BY: PROVIDER: . CONSTITUTIONAL: ANY CHANGE IN YOUR MEDICAL CONDITION? NO . CHILLS NO . FEVER NO . INFECTION: DO YOU HAVE NEW INFECTIONS? NO . DO YOU HAVE HISTORY OF MRSA? NO . MUSCULOSKELETAL: ANY NEW PATTERNS OF PAIN OR NUMBNESS? NO . GASTROENTEROLOGY: ANY NEW CHANGE IN BOWEL CONTROL? NO . GENITOURINARY: ANY NEW CHANGE IN BLADDER CONTROL? NO . IS THERE A CHANCE YOU COULD BE ? NO . HEMATOLOGY/LYMPH: DO YOU TAKE ANY BLOOD THINNERS? (FOR EXAMPLE- COUMADIN, PLAVIX, AGGRENOX, PLATEL, PRADAXA, OR XARELTO) NO . WHEN WAS YOUR LAST DOSE? DATE: TIME: . NEUROLOGY: HAVE YOU FALLEN IN THE PAST 6 MONTHS? NO . ANY NEW EXTREMITY NUMBNESS OR WEAKNESS? NO . CARDIOLOGY: DO YOU HAVE A PACEMAKER OR DEFIBRILLATOR? NO . RESPIRATORY: HAVE YOU BEEN SICK IN THE PAST WEEK? NO . FEVER NO . FLU LIKE SYMPTOMS? NO . COUGH NO . INTEGUMENTARY: DO YOU HAVE ANY RASHES OR OPEN SORES? NO . ALLERGIC/IMMUNO: ARE YOU ALLERGIC TO SHELLFISH OR IV DYE? NO . ANY NEW ALLERGIES? NO . PSYCHIATRIC: DO YOU HAVE THOUGHTS OF HURTING YOURSELF OR SOMEONE ELSE? NO . ARE YOU ABUSED, NEGLECTED, OR IN AN UNSAFE ENVIRONMENT? NO . ENDOCRINOLOGY: ARE YOU DIABETIC? NO . OTHER: DO YOU NEED ANY PRESCRIPTIONS? NO . IF YES, PLEASE LIST: ____ . ANY NEW PROBLEMS WITH YOUR MEDICATIONS? NO . WHEN DID YOU LAST EAT? ____LAST NIGHT 10 PM . WHEN DID YOU LAST DRINK? ____0800 . WHAT DID YOU LAST DRINK? ____WATER . NAME OF PERSON DRIVING YOU HOME? ____ROSENDO BARRIOS . DO YOU HAVE ANY OTHER QUESTIONS OR CONCERNS NO . VITAL SIGNS WT 106.0 LBS, HT 61 IN, BMI 20.03 INDEX, BP 138/63 MM HG, HR 78 /MIN, RR 16 /MIN, TEMP 97.8 F, OXYGEN SAT % 97%, SAFE IN ENV? (Y/N) YES, NA INITIALS [id number], REVIEWED BY: KG. ASSESSMENTS SACROILIITIS, NOT ELSEWHERE CLASSIFIED - M46.1 (PRIMARY) PROCEDURES PN SI PRE PROCEDURE DIAGNOSIS SACROILIITIS, SACROILIAC JOINT DYSFUNCTION POST PROCEDURE DIAGNOSIS SACROILIITIS, SACROILIAC JOINT DYSFUNCTION PROCEDURE BILATERAL SACROILIAC JOINT BLOCK SURGEON DR. KENRICK VERNON INDUSTRIAL TECHNICIAN NONE ANESTHESIA LOCAL PRE PROCEDURE NOTE PATIENT WITH HISTORY OF CHRONIC LOW BACK PAIN. I EVALUATED THE PATIENT AND REVIEWED THE CHART. I WENT OVER THE RISKS, ALTERNATIVES, AND BENEFITS ASSOCIATED WITH THIS PROCEDURE. THE PATIENT WOULD LIKE TO PROCEED AND GAVE CONSENT TO PERFORM THE PROCEDURE. THE PATIENT DENIES UNEXPLAINABLE WEIGHT LOSS, FEVER, CHILLS, OR NEW CHANGES IN URINARY OR BOWEL CONTROL DESCRIPTION OF PROCEDURE THE PATIENT WAS BROUGHT TO THE PROCEDURE ROOM AND PLACED IN THE PRONE POSITION. THE LUMBOSACRAL AREA WAS CLEANED WITH CHLORAPREP SOLUTION AND DRAPED ASEPTICALLY. THE PROCEDURE WAS DONE UNDER STERILE CONDITIONS. I CHECKED LATERALITY AND THE LEVEL WHERE THE PROCEDURE WAS GOING TO BE PERFORMED WITH THE PATIENT AND THE SUPPORTING STAFF AT THE MOMENT OF THE TIME OUT IN THE PROCEDURE ROOM. UNDER FLUOROSCOPIC GUIDANCE, TARGET POINT WAS SELECTED AT THE LOWER BORDER OF THE RIGHT AND LEFT SACROILIAC JOINT. TARGET POINT WAS SELECTED AFTER MEDIAL ROTATION AND TILT OF THE MAGNIFIER OF THE C-ARM. LIDOCAINE WAS USED TO NUMB THE SKIN AND SUBCUTANEOUS TISSUE BELOW IT. A SPINAL NEEDLE, 22-GAUGE, WAS ADVANCED UNDER FLUOROSCOPIC GUIDANCE AND FOLLOWING PATIENT FEEDBACK UNTIL THE TARGET AREA WAS TOUCHED. THE POSITION OF THE NEEDLE WAS VERIFIED WITH AP AND LATERAL VIEWS. AFTER PROPER POSITION OF THE NEEDLE WAS ACHIEVED, ISOVUE M DYE 30%, 0.25 ML, WAS INJECTED SHOWING SPREAD OF THE DYE. THEN, A SOLUTION OF 20 MG OF KENALOG WAS INJECTED IN RIGHT JOINT WITH 3 ML OF BUPIVACAINE 0.125%. THERE WAS NO EVIDENCE OF BLOOD, PARESTHESIA OR CEREBROSPINAL FLUID DURING THE PROCEDURE. THE PATIENT WAS SENT TO THE RECOVERY ROOM. THE PATIENT WAS MOVING THE EXTREMITIES AND DOING WELL. THERE WAS NO COMPLICATION DURING THE PROCEDURE. FLUOROSCOPY TIME WAS 12 SECONDS POST PROCEDURE NOTE THE PATIENT WILL BE SEEN IN A FOLLOW UP IN THE NEXT FEW WEEKS. INSTRUCTIONS WERE GIVEN, QUESTIONS WERE ANSWERED, AND THE PATIENT EXPRESSED UNDERSTANDING AND AGREED WITH THE PLAN. I, FABRIZIO BURCH, DOCUMENTED THE ABOVE INFORMATION ACTING A SCRIBE FOR DR. VERNON. I HAVE REVIEWED THE ABOVE DOCUMENT, WRITTEN BY FABRIZIO LOPEZ AND I VERIFY THAT IT IS [facility]NO[facility] FLUORO GUIDANCE (PAIN)[id number] PROCEDURE CODES 12937 INJECT SACROILIAC JOINT 6045F RADXPS IN END [id number] PXD DISPOSITION & COMMUNICATION FOLLOW UP 3 WEEKS ELECTRONICALLY SIGNED BY KENRICK VERNON MD ON 03/08/2017 AT 07:11 PM EDT DISCLAIMER : THIS IS A VISIT SUMMARY EXTRACTED FROM THE [employer] CHART. IT IS NOT A COPY OF THE [employer] PROGRESS NOTE. MTDD
== END ==
LOC: M PAIN 10:20
PROVIDERS: ATTEND Anesthesiology
DX: G89.29 Other chronic pain (principal); M46.1 Sacroiliitis, not elsewhere classified; M54.5 Low back pain; Z79.891 Long term (current) use of opiate analgesic; Z79.899 Other long term (current) drug therapy; Z88.2 Allergy status to sulfonamides; Z88.8 Allergy status to other drugs, medicaments and biological substances
CPT/HCPCS: G0260; J3301; Q9967

== ENCOUNTER → 2017-03-11 | Outpatient (CLI) | payer OTHER ==
[~2017-03-11] MED LIST changes: -BUPIVACAINE HCL 0.25% 30 ML VIAL As Ordered ONE; -ISOVUE-M 300 61% 15ML VIAL (Q9967) As Ordered ONE; -LIDOCAINE 1% SDV INJ 30 ML VIAL As Ordered ONE; -TRIAMCINOLONE ACETONIDE SUSP 40 MG/ML VIAL (J3301) As Ordered ONE; -diazePAM 5 MG TAB As Ordered ONE; -oxyCODONE 5MG TAB As Ordered ONE
--- NOTE | 2017-03-28 23:46 | ECWPNPC ---
PATIENT NAME: SHARI ALVARADO : 1965 GENDER: FEMALE VISIT DATE: 03/11/2017 DISCHARGE DATE: 03/11/17 1639 VISIT LOCKED DATE TIME: PHYSICIAN: KENRICK VERNON RESOURCE: KENRICK VERNON REASON FOR APPOINTMENT 1. W/C BACK/POST PROCEDURE HISTORY OF PRESENT ILLNESS HISTORY OF PRESENT ILLNESS: PAIN THE PATIENT DESCRIBES THE PAIN... 51 YEAR OLD FEMALE PATIENT WITH HISTORY OF CHRONIC BACK PAIN. PATIENT DESCRIBES THE PAIN ACHING, BURNING, SHARP, STABBING, THROBBING, SHOTTING, HAVING IT ALL THE TIME AND SOMETIMES COMES AND GOES WITH A PAIN SCORE OF 8/10 AT TODAYS VISIT. 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 PATIENT REPORTS THAT SHE HAS TRIED PT IN THE PAST WITH OUT ANY IMPROVEMENTS. PATIENT STATES THAT SHE HAD BACK SURGERY IN 2006. PATIENT HAD A BILATERAL SJI DONE ON 02/22/2017 AND THE PATIENT STATES THAT THE INJECTION DID AIDE IN PAIN RELIEF BUT DID NOT COMEPLETELY TAKE THE PAIN AWAY. PATIENT DENIES UNEXPLAINABLE WEIGHT LOSS, FEVER, CHILLS, NEW CHANGES ON HER URINARY OR BOWEL CONTROL. FALL RISK SCREENING: SCREENING :NO FALLS IN THE PAST YEAR CURRENT MEDICATIONS TAKING GABAPENTIN 800 MG TABLET 1 TABLET ORALLY THREE TIMES A DAY FOR PAIN TAKING IBUPROFEN 800 MG TABLET 1 TABLET ORALLY WITH FOOD THREE TIMES A DAY PRN FOR PAIN MDD3 TAKING CYCLOBENZAPRINE HCL 10 MG TABLET 1 TABLET ORALLY FOR SPASMS AND PAIN WORKERS COMPENSATION BEFORE BEDTIME CAN REPEAT IN 4 HRS MDD2 TAKING OXYCODONE HCL 10 MG TABLET 1 ORALLY Q4H PRN PAIN MDD5 WORKERS COMPENSATION NOT-TAKING XANAX 0.25 MG TABLET 1 TABLET ORALLY THREE TIMES A DAY NOT-TAKING LIDODERM 5 % PATCH 1 -2 PATCH TO INTACT SKIN REMOVE AFTER 12 HOURS EXTERNALLY ON 12 HRS, OFF 12 HRS TO LOW BACK, NOTES: NONE MEDICATION LIST REVIEWED AND RECONCILED WITH THE PATIENT PAST MEDICAL HISTORY CHRONIC LOW BACK AND LEG PAIN ALLERGIES SULFA (FOR ALLERGY USE ONLY): HIVES CYMBALTA: DIARRHEA, ABDOMINAL PAIN: SIDE EFFECTS REVIEW OF SYSTEMS REVIEWED BY: PROVIDER: KENRICK VERNON MD . CONSTITUTIONAL: ANY CHANGE IN YOUR MEDICAL CONDITION? NO . CHILLS NO . FEVER NO . INFECTION: DO YOU HAVE NEW INFECTIONS? NO . DO YOU HAVE HISTORY OF MRSA? NO . MUSCULOSKELETAL: ANY NEW PATTERNS OF PAIN OR NUMBNESS? NO . GASTROENTEROLOGY: ANY NEW CHANGE IN BOWEL CONTROL? NO . GENITOURINARY: ANY NEW CHANGE IN BLADDER CONTROL? NO . IS THERE A CHANCE YOU COULD BE ? NO . HEMATOLOGY/LYMPH: DO YOU TAKE ANY BLOOD THINNERS? (FOR EXAMPLE- COUMADIN, PLAVIX, AGGRENOX, PLATEL, PRADAXA, OR XARELTO) NO . WHEN WAS YOUR LAST DOSE? DATE: TIME: . NEUROLOGY: HAVE YOU FALLEN IN THE PAST 6 MONTHS? NO . ANY NEW EXTREMITY NUMBNESS OR WEAKNESS? NO . CARDIOLOGY: DO YOU HAVE A PACEMAKER OR DEFIBRILLATOR? NO . RESPIRATORY: HAVE YOU BEEN SICK IN THE PAST WEEK? NO . FEVER NO . FLU LIKE SYMPTOMS? NO . COUGH NO . INTEGUMENTARY: DO YOU HAVE ANY RASHES OR OPEN SORES? NO . ALLERGIC/IMMUNO: ARE YOU ALLERGIC TO SHELLFISH OR IV DYE? NO . ANY NEW ALLERGIES? NO . PSYCHIATRIC: DO YOU HAVE THOUGHTS OF HURTING YOURSELF OR SOMEONE ELSE? NO . ARE YOU ABUSED, NEGLECTED, OR IN AN UNSAFE ENVIRONMENT? NO . ENDOCRINOLOGY: ARE YOU DIABETIC? NO . OTHER: DO YOU NEED ANY PRESCRIPTIONS? YES . IF YES, PLEASE LIST: GABAPENTIN , OXYCODONE . ANY NEW PROBLEMS WITH YOUR MEDICATIONS? NO . WHEN DID YOU LAST EAT? ____ . WHEN DID YOU LAST DRINK? ____ . WHAT DID YOU LAST DRINK? ____ . NAME OF PERSON DRIVING YOU HOME? ____ . DO YOU HAVE ANY OTHER QUESTIONS OR CONCERNS NO . VITAL SIGNS WT 107 LBS, HT 61 IN, BMI 20.22 INDEX, BP 135/80 MM HG, HR 86 /MIN, RR 16 /MIN, TEMP 97 F, OXYGEN SAT % 98%, NA INITIALS AW 1549, REVIEWED BY: NL. EXAMINATION : PATIENT IS ALERT O X 3 AND COOPERATIVE. PATIENT IS USING A TENS UNITS FOR THE PAIN. THERE IS TENDERNESS IN THE SACROILIAC JOINTS. PATIENTS URINE TOXICOLOGY RESULTS DONE ON DECEMBER 17, 2016 ARE CONSISTENT WITH HER MEDICATION REGIME MRI OF THE LUMBAR SPINE DONE ON 12/13/2014. ASSESSMENTS SACROILIITIS, NOT ELSEWHERE CLASSIFIED - M46.1 (PRIMARY) TREATMENT OTHERS REFILL GABAPENTIN TABLET, 800 MG, 1 TABLET, ORALLY, THREE TIMES A DAY FOR PAIN, 30 DAY(S), 90, REFILLS 2 REFILL IBUPROFEN TABLET, 800 MG, 1 TABLET, ORALLY WITH FOOD, THREE TIMES A DAY PRN FOR PAIN MDD3, 30 DAY(S), 50, REFILLS 1 REFILL CYCLOBENZAPRINE HCL TABLET, 10 MG, 1 TABLET, ORALLY FOR SPASMS AND PAIN WORKERS COMPENSATION, BEFORE BEDTIME CAN REPEAT IN 4 HRS MDD2, 30 DAY(S), 50, REFILLS 2 REFILL OXYCODONE HCL TABLET, 10 MG, 1, ORALLY, Q4H PRN PAIN MDD5 WORKERS COMPENSATION, 30 DAY(S), 150, REFILLS 0 CLINICAL NOTES: WE DISCUSSED SEVERAL ISSUES WITH MS. ALVARADO'S PAIN MANAGEMENT CASE. AT THIS TIME THE PATIENT WILL CONTINUE ON THE SAME MEDICATION REGIMEN BEFORE. I DISCUSSED WITH THE PATIENT THAT SHE IS A GOOD CANDIDATE FOR THE DORSAL COLUMN STIMULATOR TRIAL. BOTH THE PATIENT AND I AGREED TO DISCUSS THE DCS IN HER NEXT FOLLOWUP APPOINTMENT. WE DISCUSSED THE RISK, BENEFITS, AND ALTERNATIVES AND THE PATIENT WOULD LIKE TO PROCEED. PATIENT WILL FOLLOW UP WITH ME IN 6 WEEKS, INSTRUCTIONS WERE GIVEN, QUESTIONS WERE ANSWERED, PATIENT REPORTS UNDERSTANDING AND AGREES WITH THE PLAN. I, ROSENDO DOE, DOCUMENTED THE ABOVE INFORMATION ACTING A SCRIBE FOR DR. VERNON. I HAVE REVIEWED THE ABOVE DOCUMENT, WRITTEN BY ROSENDO LOPEZ AND I VERIFY THAT IT IS ACCURATE. PROCEDURES PN WORKMANS' COMP OPINION IN YOUR OPINION, WAS THE INCIDENT THAT THE PATIENT DESCRIBED THE COMPETENT MEDICAL CAUSE OF THIS INJURY/ILLNESS? YES ARE THE PATIENT'S COMPLAINTS CONSISTENT WITH HIS/HER HISTORY OF THE INJURY/ILLNESS? YES IS THE PATIENT'S HISTORY OF THE INJURY/ILLNESS CONSISTENT WITH YOUR OBJECTIVE FINDING? YES WHAT IS THE PERCENTAGE OF TEMPORARY IMPAIRMENT? TOTAL = 100% IS THE PATIENT WORKING? NO DOCTOR ON SITE: KENRICK CASTILLO MD PROCEDURE CODES FA211 ESTABILISHED PATIENT [facility] FACILITY CHARGE [address]2845 OFFICE/OUTPATIENT VISIT EST G8427 DOC MEDS VERIFIED W/PT OR RE G8730 PAIN ASSESS POS TOOL F/U PLAN DOC DISPOSITION & COMMUNICATION FOLLOW UP 6 WEEKS ELECTRONICALLY SIGNED BY KENRICK VERNON MD ON 03/28/2017 AT 08:27 PM EDT DISCLAIMER : THIS IS A VISIT SUMMARY EXTRACTED FROM THE [employer] CHART. IT IS NOT A COPY OF THE [employer] PROGRESS NOTE. MTDD
== END ==
LOC: M PAIN 15:35
PROVIDERS: ATTEND Anesthesiology
DX: G89.29 Other chronic pain (principal); M46.1 Sacroiliitis, not elsewhere classified; Z79.891 Long term (current) use of opiate analgesic; Z79.899 Other long term (current) drug therapy; Z79.1 Long term (current) use of non-steroidal anti-inflammatories (NSAID); Z88.2 Allergy status to sulfonamides; Z88.8 Allergy status to other drugs, medicaments and biological substances

== ENCOUNTER → 2017-04-22 | Outpatient (CLI) | payer OTHER ==
--- NOTE | 2017-05-23 00:20 | ECWPNPC ---
PATIENT NAME: SHARI ALVARADO : 1965 GENDER: FEMALE VISIT DATE: 04/22/2017 DISCHARGE DATE: 04/22/17 0000 VISIT LOCKED DATE TIME: PHYSICIAN: MACHO MCKEON RESOURCE: MACHO MCKEON REASON FOR APPOINTMENT 1. LOW BACK PAIN HISTORY OF PRESENT ILLNESS HISTORY OF PRESENT ILLNESS: PAIN THE PATIENT DESCRIBES THE PAIN... FALL RISK SCREENING: SCREENING :NO FALLS IN THE PAST YEAR TODAY'S VISIT: NOTES: WC FOLLOWUP FOR LOW BACK PAIN. RATES PAIN TODAY 8/10. DESCRIBES PAIN ACHING, BURNING, SHARP, STABBING TENDER, THROBBING AND CONSTANT. BACK PAIN IS PERSISTANT BUT MANAGEBLE WITH TENS UNIT AND CURENT MEDS. TENS UNIT IS STRUCTURALLY DETERIORATING. CONTINUES TO HAVE MUCH DIFFICULTY WITH STANDING AND WALKING. CURRENT MEDICATIONS TAKING XANAX 0.25 MG TABLET 1 TABLET ORALLY THREE TIMES A DAY TAKING GABAPENTIN 800 MG TABLET 1 TABLET ORALLY THREE TIMES A DAY FOR PAIN TAKING IBUPROFEN 800 MG TABLET 1 TABLET ORALLY WITH FOOD THREE TIMES A DAY PRN FOR PAIN MDD3 TAKING CYCLOBENZAPRINE HCL 10 MG TABLET 1 TABLET ORALLY FOR SPASMS AND PAIN WORKERS COMPENSATION BEFORE BEDTIME CAN REPEAT IN 4 HRS MDD2 TAKING OXYCODONE HCL 10 MG TABLET 1 ORALLY Q4H PRN PAIN MDD5 WORKERS COMPENSATION NOT-TAKING LIDODERM 5 % PATCH 1 -2 PATCH TO INTACT SKIN REMOVE AFTER 12 HOURS EXTERNALLY ON 12 HRS, OFF 12 HRS TO LOW BACK, NOTES: NONE MEDICATION LIST REVIEWED AND RECONCILED WITH THE PATIENT PAST MEDICAL HISTORY CHRONIC LOW BACK AND LEG PAIN ALLERGIES SULFA (FOR ALLERGY USE ONLY): HIVES CYMBALTA: DIARRHEA, ABDOMINAL PAIN: SIDE EFFECTS SOCIAL HISTORY GENERAL: TOBACCO USE ARE YOU A:CURRENT SMOKER HOW OFTEN DO YOU SMOKE CIGARETTES?EVERY DAY HOW SOON AFTER YOU WAKE UP DO YOU SMOKE YOUR FIRST CIGARETTE?WITHIN 5 MIN HOW MANY CIGARETTES A DAY DO YOU SMOKE?11-20 ARE YOU INTERESTED IN QUITTING?THINKING ABOUT QUITTING CAN'T AFFORD THE CHANTIX THAT SHE HAD A SCRIPT FOR PATIENT COUNSELED ON THE DANGERS OF TOBACCO USE AND URGED TO QUIT:01/07/2017 COUNSELED THE PATIENT ON SMOKING CESSATION, EDUCATION [id number]/16/2017 PREVIOUS QUIT ATTEMPTS?YES, WITHIN THE LAST 6 MONTHS. RECREATIONAL DRUG USE DRUG USE?NO CAFFEINE CAFFEINE USE?NO PSYCHOLOGICAL HX TREATMENTNO PAIN CLINIC PFS, CLERGY, PUBLIC HEALTH REFERRALS PFS REFERRAL NEEDED?NO CLERGY REFERRAL NEEDED?NO PUBLIC HEALTH REFERRAL NEEDED?NO WAS THE PROVIDER NOTIFIED OF ANY PERTINENT INFO?NO HAS THE PATIENT BEEN EDUCATED REGARDING HIS/HER PLAN OF CARE?YES HAS THE PATIENT BEEN EDUCATED REGARDING PAIN, THE RISK FOR PAIN, THE IMPORTANCE OF EFFECTIVE PAIN MANAGEMENT, AND THE PAIN ASSESSMENT PROCESS?YES PATIENT: ____. ADVANCE DIRECTIVES HEALTH CARE PROXY?NO POWER OF DIRECTOR OF VOCATIONAL TRAINING?NO REVIEW OF SYSTEMS REVIEWED BY: PROVIDER: MACHO FUENTES . CONSTITUTIONAL: ANY CHANGE IN YOUR MEDICAL CONDITION? NO . CHILLS NO . FEVER NO . INFECTION: DO YOU HAVE NEW INFECTIONS? NO . DO YOU HAVE HISTORY OF MRSA? NO . MUSCULOSKELETAL: ANY NEW PATTERNS OF PAIN OR NUMBNESS? NO . GASTROENTEROLOGY: ANY NEW CHANGE IN BOWEL CONTROL? NO . GENITOURINARY: ANY NEW CHANGE IN BLADDER CONTROL? NO . IS THERE A CHANCE YOU COULD BE ? NO . HEMATOLOGY/LYMPH: DO YOU TAKE ANY BLOOD THINNERS? (FOR EXAMPLE- COUMADIN, PLAVIX, AGGRENOX, PLATEL, PRADAXA, OR XARELTO) NO . WHEN WAS YOUR LAST DOSE? DATE: TIME: . NEUROLOGY: HAVE YOU FALLEN IN THE PAST 6 MONTHS? NO . ANY NEW EXTREMITY NUMBNESS OR WEAKNESS? NO . CARDIOLOGY: DO YOU HAVE A PACEMAKER OR DEFIBRILLATOR? NO . RESPIRATORY: HAVE YOU BEEN SICK IN THE PAST WEEK? YES . FEVER NO . FLU LIKE SYMPTOMS? NO . COUGH YES . INTEGUMENTARY: DO YOU HAVE ANY RASHES OR OPEN SORES? NO . ALLERGIC/IMMUNO: ARE YOU ALLERGIC TO SHELLFISH OR IV DYE? NO . ANY NEW ALLERGIES? NO . PSYCHIATRIC: DO YOU HAVE THOUGHTS OF HURTING YOURSELF OR SOMEONE ELSE? NO . ARE YOU ABUSED, NEGLECTED, OR IN AN UNSAFE ENVIRONMENT? NO . ENDOCRINOLOGY: ARE YOU DIABETIC? NO . OTHER: DO YOU NEED ANY PRESCRIPTIONS? YES . IF YES, PLEASE LIST: CYCLOBENZAPRINE . ANY NEW PROBLEMS WITH YOUR MEDICATIONS? NO . WHEN DID YOU LAST EAT? ____ . WHEN DID YOU LAST DRINK? ____ . WHAT DID YOU LAST DRINK? ____ . NAME OF PERSON DRIVING YOU HOME? ____ . DO YOU HAVE ANY OTHER QUESTIONS OR CONCERNS NO . VITAL SIGNS WT 102 LBS, HT 61 IN, BMI 19.27 INDEX, BP 136/101 MM HG, HR 90 /MIN, RR 16 /MIN, TEMP 98 F, OXYGEN SAT % 93%, NA INITIALS CM 1540. EXAMINATION GENERAL EXAMINATION: LUNGS:CLEAR TO AUSCULTATION BILATERALLY. HEART:HEART RATE REGULAR. MUSCULOSKELETAL:EXQUISITE TENDERNESS WITH PALPATION OVER SACRAL ILIAC JOINTS BILATERALLY. POSTURE STOOPED AND TWISTED . RIGHT LEG WEAK, HAS DIFF WITH FLEXION/EXTENSION OF LOWER EXTREMITIES. TENDER WITH PALPATION OVER LUMBOSACRAL AXIS. TENS UNIT IN PLACE ACROSS LOW BACK. ASSESSMENTS LUMBAR POST-LAMINECTOMY SYNDROME - M96.1 (PRIMARY) LUMBAR RADICULOPATHY - M54.16 CHRONIC PRESCRIPTION OPIATE USE - Z79.899 TREATMENT LUMBAR POST-LAMINECTOMY SYNDROME REFILL CYCLOBENZAPRINE HCL TABLET, 10 MG, 1 TABLET, ORALLY FOR SPASMS AND PAIN WORKERS COMPENSATION, BEFORE BEDTIME CAN REPEAT IN 4 HRS MDD2, 90 DAY(S), 150, REFILLS 1 NOTES: WILL CONTACT YOHANA ESPINOZA ABOUT UPDATING TENS UNIT. IS ASKING FOR A LETTER FROM DR VERNON REGARDING ELLEN AND IBU BEING COMING FROM COMP. AT THIS TIME IS NOT INTERESTED IN A DORSAL COLUMN STIMULATOR. SERVICE DOG CALL [facility]IDE: [phone]. PROCEDURES PN WORKMANS' COMP OPINION IN YOUR OPINION, WAS THE INCIDENT THAT THE PATIENT DESCRIBED THE COMPETENT MEDICAL CAUSE OF THIS INJURY/ILLNESS? YES ARE THE PATIENT'S COMPLAINTS CONSISTENT WITH HIS/HER HISTORY OF THE INJURY/ILLNESS? YES IS THE PATIENT'S HISTORY OF THE INJURY/ILLNESS CONSISTENT WITH YOUR OBJECTIVE FINDING? YES WHAT IS THE PERCENTAGE OF TEMPORARY IMPAIRMENT? TOTAL = 100% IS THE PATIENT WORKING? NO DOCTOR ON SITE: KENRICK CASTILLO MD PROCEDURE CODES FA211 ESTABILISHED PATIENT [facility] FACILITY CHARGE DISPOSITION & COMMUNICATION FOLLOW UP CALL WHEN NEEDED/JUNE (REASON: WC BACK) ELECTRONICALLY SIGNED BY OSMIN VARGAS ON 05/22/2017 AT 08:47 PM EDT DISCLAIMER : THIS IS A VISIT SUMMARY EXTRACTED FROM THE [employer] CHART. IT IS NOT A COPY OF THE [employer] PROGRESS NOTE. MARTIN
== END ==
LOC: M PAIN 14:45
PROVIDERS: ATTEND Nurse Practitioner Family
DX: M96.1 Postlaminectomy syndrome, not elsewhere classified (principal); M54.16 Radiculopathy, lumbar region; F17.210 Nicotine dependence, cigarettes, uncomplicated; Z88.2 Allergy status to sulfonamides; Z88.8 Allergy status to other drugs, medicaments and biological substances; Z79.891 Long term (current) use of opiate analgesic; Z79.899 Other long term (current) drug therapy

== ENCOUNTER → 2017-08-12 | Outpatient (CLI) | payer OTHER | LOC: M PAIN 11:00 | DX: M96.1 Postlaminectomy syndrome, not elsewhere classified (principal); M54.16 Radiculopathy, lumbar region; F17.210 Nicotine dependence, cigarettes, uncomplicated; Z79.1 Long term (current) use of non-steroidal anti-inflammatories (NSAID); Z79.899 Other long term (current) drug therapy; Z88.2 Allergy status to sulfonamides; Z88.8 Allergy status to other drugs, medicaments and biological substances | CPT/HCPCS: G0463 ==

== ENCOUNTER → 2017-10-14 | Outpatient (CLI) | payer OTHER | LOC: M PAIN 11:15 | DX: M96.1 Postlaminectomy syndrome, not elsewhere classified (principal); M54.16 Radiculopathy, lumbar region; F17.210 Nicotine dependence, cigarettes, uncomplicated; Z79.891 Long term (current) use of opiate analgesic; Z79.899 Other long term (current) drug therapy; Z88.2 Allergy status to sulfonamides; Z88.8 Allergy status to other drugs, medicaments and biological substances | CPT/HCPCS: G0463 ==

== ENCOUNTER → 2017-12-14 | Outpatient (CLI) | payer OTHER | LOC: M PAIN 11:15 | DX: M96.1 Postlaminectomy syndrome, not elsewhere classified (principal); M54.16 Radiculopathy, lumbar region; F17.210 Nicotine dependence, cigarettes, uncomplicated; Z79.891 Long term (current) use of opiate analgesic; Z79.899 Other long term (current) drug therapy; Z88.2 Allergy status to sulfonamides; Z88.8 Allergy status to other drugs, medicaments and biological substances | CPT/HCPCS: G0463 ==

== ENCOUNTER → 2018-02-21 | Outpatient (CLI) | payer OTHER | LOC: M PAIN 14:00 | DX: M96.1 Postlaminectomy syndrome, not elsewhere classified (principal); M54.16 Radiculopathy, lumbar region; F17.210 Nicotine dependence, cigarettes, uncomplicated; Z79.891 Long term (current) use of opiate analgesic; Z79.899 Other long term (current) drug therapy; Z88.2 Allergy status to sulfonamides; Z88.8 Allergy status to other drugs, medicaments and biological substances | CPT/HCPCS: G0463 ==

== ENCOUNTER → 2018-05-30 | Outpatient (CLI) | payer OTHER | LOC: M PAIN 10:00 | DX: M96.1 Postlaminectomy syndrome, not elsewhere classified (principal); M54.16 Radiculopathy, lumbar region; F17.210 Nicotine dependence, cigarettes, uncomplicated; Z88.2 Allergy status to sulfonamides; Z79.899 Other long term (current) drug therapy; Z98.1 Arthrodesis status; Z79.891 Long term (current) use of opiate analgesic; Z88.8 Allergy status to other drugs, medicaments and biological substances | CPT/HCPCS: G0463 ==

== ENCOUNTER → 2018-08-17 | Outpatient (CLI) | payer MEDICARE, OTHER, SELFPAY ==
[~2018-08-17] MED LIST changes: +TIZA2CAP PO; -TIZA2CAP3 PO
--- NOTE | 2018-09-03 23:51 | ECWPNPC ---
PATIENT NAME: SHARI ALVARADO : 1965 GENDER: FEMALE VISIT DATE: 08/17/2018 DISCHARGE DATE: 08/17/18 1612 VISIT LOCKED DATE TIME: PHYSICIAN: KENRICK VERNON MD RESOURCE: KENRICK VERNON MD REASON FOR APPOINTMENT 1. MEDS HISTORY OF PRESENT ILLNESS HISTORY OF PRESENT ILLNESS: PAIN THE PATIENT DESCRIBES THE PAIN... 51 YEAR OLD FEMALE PATIENT WITH A HISTORY OF CHRONIC LOW BACK PAIN. THE PATIENT DESCRIBES THE PAIN ACHING, SORE, SHARP, STABBING, SHOOTING, AND CONTINUOUS WITH A PAIN SCORE OF 6-8/10 DEPENDING ON PHYSICAL ACTIVITY. THE PATIENT WAS HURT IN A WORK RELATED INJURY ON 09/03/2005 WHILE WORKING FOR [employer] WHEN SHE SLIPPED AND FELL CAUSING HER TO INJURE HER BACK. THE PATIENT HAD A FUSION DONE IN 2006, BUT HER PAIN PERSISTED. THE PATIENT SAYS THAT THE PAIN STARTS IN HER LOW BACK AND RADIATES DOWN INTO HER LEGS. THE PATIENT IS CURRENTLY USING IBUPROFEN, GABAPENTIN, CYCLOBENZAPRINE, AND OXYCODONE TO AID IN PAIN RELIEF. THE PATIENT SAYS THAT THE USE OF THESE MEDICATIONS HELP HER REMAIN MOBILE AND FUNCTIONAL. PATIENT DENIES UNEXPLAINABLE WEIGHT LOSS, FEVER, CHILLS, NEW CHANGES ON HER URINARY OR BOWEL CONTROL. FALL RISK SCREENING: SCREENING :NO FALLS IN THE PAST YEAR CURRENT MEDICATIONS TAKING IBUPROFEN 800 MG TABLET 1 TABLET ORALLY WITH FOOD THREE TIMES A DAY PRN FOR PAIN MDD3 TAKING GABAPENTIN 800 MG TABLET 1 TABLET ORALLY THREE TIMES A DAY FOR PAIN TAKING CYCLOBENZAPRINE HCL 10 MG TABLET 1 TABLET ORALLY FOR SPASMS AND PAIN WORKERS COMPENSATION BEFORE BEDTIME CAN REPEAT IN 4 HRS MDD2 TAKING OXYCODONE HCL 10 MG TABLET 1 ORALLY Q4H PRN PAIN MDD5 WORKERS COMPENSATION MEDICATION LIST REVIEWED AND RECONCILED WITH THE PATIENT PAST MEDICAL HISTORY CHRONIC LOW BACK AND LEG PAIN ALLERGIES SULFA (FOR ALLERGY USE ONLY): HIVES CYMBALTA: DIARRHEA, ABDOMINAL PAIN: SIDE EFFECTS SURGICAL HISTORY LUMBAR FUSION 2006 OVARIAN CYST REMOVAL 1996 TUBAL LIGATION 1987 FAMILY HISTORY FATHER: ALIVE 77 YRS, SKIN CA, DIAGNOSED WITH HYPERTENSION, HEART DISEASE, CANCER MOTHER: ALIVE 77 YRS, SKIN CA, DIAGNOSED WITH CANCER SIBLINGS: ALIVE SON(S): ALIVE 2 BROTHER(S) , 3 SISTER(S) . 3 SON(S) - HEALTHY. ALL SIBLINGS HAVE HTN1 SISTER AND 1 BROTHER HAVE HEART DISEASE. SOCIAL HISTORY GENERAL: TOBACCO USE ARE YOU A:CURRENT SMOKER ARE YOU INTERESTED IN QUITTING?THINKING ABOUT QUITTING CAN'T AFFORD THE CHANTIX THAT SHE HAD A SCRIPT FOR PREVIOUS QUIT ATTEMPTS?YES, MORE THAN 6 MONTHS AGO. COUNSELED THE PATIENT ON SMOKING CESSATION, EDUCATION [id number]/24/2019 HOW MANY CIGARETTES A DAY DO YOU SMOKE?11-20 HOW SOON AFTER YOU WAKE UP DO YOU SMOKE YOUR FIRST CIGARETTE?WITHIN 5 MIN HOW OFTEN DO YOU SMOKE CIGARETTES?EVERY DAY PATIENT COUNSELED ON THE DANGERS OF TOBACCO USE AND URGED TO QUIT:08/17/2018 ALCOHOL SCREENING DID YOU HAVE A DRINK CONTAINING ALCOHOL IN THE PAST YEAR?NO POINTS0 INTERPRETATIONNEGATIVE RECREATIONAL DRUG USE DRUG USE?NO CAFFEINE CAFFEINE USE?YES HOW OFTEN AND HOW MUCH? 3 CUPS COFFEE/DAY SCIENTOLOGIST [id number] SAMARITAN LANGUAGE LANGUAGES SPOKEN:YEMENI LEARNING BARRIERS / SPECIAL NEEDS BARRIERS TO LEARNING?NO HEARING IMPAIRED?NO VISION IMPAIRED?YES :CORRECTIVE LENSES COGNITIVELY IMPAIRED?NO READINESS TO LEARN?YES LEARNING PREFERENCES?NO LEARNING CAPABILITIES PRESENT?YES EMOTIONAL BARRIERS?NO SPECIAL DEVICES?YES : OCC. 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 DIET: REGULAR. EXERCISE: NONE. MARITAL STATUS: . PAIN CLINIC PFS, CLERGY, PUBLIC HEALTH REFERRALS PFS REFERRAL NEEDED?NO CLERGY REFERRAL NEEDED?NO PUBLIC HEALTH REFERRAL NEEDED?NO WAS THE PROVIDER NOTIFIED OF ANY PERTINENT INFO? N/A HAS THE PATIENT BEEN EDUCATED REGARDING HIS/HER PLAN OF CARE?YES HAS THE PATIENT BEEN EDUCATED REGARDING PAIN, THE RISK FOR PAIN, THE IMPORTANCE OF EFFECTIVE PAIN MANAGEMENT, AND THE PAIN ASSESSMENT PROCESS?YES ADVANCE DIRECTIVE ADVANCE DIRECTIVE DISCUSSED WITH PATIENT:YES 08/17/18 PT DOES NOT HAVE ANY ADVANCE DIRECTIVES AND SHE DECLINES INFORMATION ON HCP AT THIS TIME. AD REVIEWED WITH PT 05/30/18 1013 BV08/17/18 REVIEWED WITH PT. AD. HOSPITALIZATION/MAJOR DIAGNOSTIC PROCEDURE SURGERY RELATED REVIEW OF SYSTEMS REVIEWED BY: PROVIDER: KENRICK VERNON MD . CONSTITUTIONAL: ANY CHANGE IN YOUR MEDICAL CONDITION? NO . CHILLS NO . FEVER NO . INFECTION: DO YOU HAVE NEW INFECTIONS? NO . DO YOU HAVE HISTORY OF MRSA? NO . MUSCULOSKELETAL: ANY NEW PATTERNS OF PAIN OR NUMBNESS? NO . GASTROENTEROLOGY: ANY NEW CHANGE IN BOWEL CONTROL? NO . GENITOURINARY: ANY NEW CHANGE IN BLADDER CONTROL? NO . IS THERE A CHANCE YOU COULD BE ? NO . HEMATOLOGY/LYMPH: DO YOU TAKE ANY BLOOD THINNERS? (FOR EXAMPLE- COUMADIN, PLAVIX, AGGRENOX, PLATEL, PRADAXA, OR XARELTO) NO . WHEN WAS YOUR LAST DOSE? DATE: TIME: . NEUROLOGY: HAVE YOU FALLEN IN THE PAST 12 MONTHS? NO . ANY NEW EXTREMITY NUMBNESS OR WEAKNESS? NO . CARDIOLOGY: DO YOU HAVE A PACEMAKER OR DEFIBRILLATOR? NO . RESPIRATORY: HAVE YOU BEEN SICK IN THE PAST WEEK? NO . FEVER NO . FLU LIKE SYMPTOMS? NO . COUGH NO . INTEGUMENTARY: DO YOU HAVE ANY RASHES OR OPEN SORES? NO . ALLERGIC/IMMUNO: ARE YOU ALLERGIC TO IV DYE? NO . ANY NEW ALLERGIES? NO . PSYCHIATRIC: DO YOU HAVE THOUGHTS OF HURTING YOURSELF OR SOMEONE ELSE? NO . ARE YOU ABUSED, NEGLECTED, OR IN AN UNSAFE ENVIRONMENT? NO . ENDOCRINOLOGY: ARE YOU DIABETIC? NO . OTHER: DO YOU NEED ANY PRESCRIPTIONS? YES . IF YES, PLEASE LIST: IBUPROFEN . ANY NEW PROBLEMS WITH YOUR MEDICATIONS? NO . WHEN DID YOU LAST EAT? ____ . WHEN DID YOU LAST DRINK? ____ . WHAT DID YOU LAST DRINK? ____ . NAME OF PERSON DRIVING YOU HOME? ____ . DO YOU HAVE ANY OTHER QUESTIONS OR CONCERNS NO . VITAL SIGNS WT 111.2 LBS, HT 61 IN, BMI 21.01 INDEX, BP 134/76 MM HG, HR 85 /MIN, RR 16 /MIN, TEMP 97.5 F, OXYGEN SAT % 97%, SAFE IN ENV? (Y/N) Y, NA INITIALS AW 1423, REVIEWED BY: AD. EXAMINATION GENERAL EXAMINATION: PATIENT IS ALERT O X 3 AND COOPERATIVE. ASSESSMENTS LUMBAR POST-LAMINECTOMY SYNDROME - M96.1 (PRIMARY) TREATMENT LUMBAR POST-LAMINECTOMY SYNDROME CLINICAL NOTES: WE DISCUSSED SEVERAL ISSUES WITH MRS. ALVARADO'S PAIN MANAGEMENT CASE. THE PATIENT WILL CONTINUE WITH THE SAME MEDICATION REGIMENT. ISTOP [id number] WAS REVIEWED. URINE TOXICOLOGY DONE ON 05/30/2018 SHOWS CONCURRENT RESULTS. THE PATIENT BROUGHT HER MEDICATION WITH HER TO TODAY'S VISIT IN THE ORIGINAL BOTTLES. WE WILL PERFORM A PILL COUNTING TODAY. THE PATIENT WILL FOLLOW UP IN 3 WEEKS. INSTRUCTIONS WERE GIVEN, QUESTIONS WERE ANSWERED, PATIENT REPORTS UNDERSTANDING AND AGREES WITH THE PLAN. I, WILLIE DELGADO, DOCUMENTED THE ABOVE INFORMATION ACTING A SCRIBE FOR DR. VERNON. I HAVE REVIEWED THE ABOVE DOCUMENT, WRITTEN BY WILLIE LOPEZ AND I VERIFY THAT IT IS ACCURATE. PROCEDURE CODES FA211 ESTABILISHED PATIENT [facility] FACILITY CHARGE G8427 CURRENT MEDS W/DOSAGES DOCUMENTED G8730 PAIN ASSESS POS TOOL F/U PLAN DOC DISPOSITION & COMMUNICATION FOLLOW UP 3 WEEKS (REASON: LOW BACK) ELECTRONICALLY SIGNED BY KENRICK VERNON MD, MD ON 09/03/2018 AT 05:56 PM EST DISCLAIMER : THIS IS A VISIT SUMMARY EXTRACTED FROM THE [employer] CHART. IT IS NOT A COPY OF THE [employer] PROGRESS NOTE. DOROTEOD
== END ==
LOC: M PAIN 14:15
PROVIDERS: ATTEND Anesthesiology
DX: M96.1 Postlaminectomy syndrome, not elsewhere classified (principal); F17.210 Nicotine dependence, cigarettes, uncomplicated; Z79.899 Other long term (current) drug therapy; Z88.2 Allergy status to sulfonamides; Z88.8 Allergy status to other drugs, medicaments and biological substances

== ENCOUNTER → 2018-09-11 | Outpatient (CLI) | payer MEDICARE, SELFPAY ==
--- NOTE | 2018-09-26 01:34 | ECWPNPC ---
PATIENT NAME: SHARI ALVARADO : 1965 GENDER: FEMALE VISIT DATE: 09/11/2018 DISCHARGE DATE: 09/11/18 1414 VISIT LOCKED DATE TIME: PHYSICIAN: KENRICK VERNON MD RESOURCE: KENRICK VERNON MD REASON FOR APPOINTMENT 1. LOW BACK HISTORY OF PRESENT ILLNESS HISTORY OF PRESENT ILLNESS: PAIN THE PATIENT DESCRIBES THE PAIN... 53 YEAR OLD FEMALE PATIENT WITH A HISTORY OF CHRONIC LOW BACK PAIN. THE PATIENT DESCRIBES THE PAIN ACHING, BURNING, SHARP, STABBING, SHOOTING, AND CONTINUOUS WITH A PAIN SCORE OF 7-10/10 DEPENDING ON PHYSICAL ACTIVITY. THE PATIENT SAYS THAT HER PAIN STARTS IN HER LOW BACK AREA AND RADIATES DOWN BOTH OF HER LEGS. THE PATIENT HAS TRIED INJECTION THERAPY IN THE PAST WITH VARIABLE RESULTS. THE PATIENT TRIED PHYSICAL THERAPY, BUT SAYS THAT IT DID NOT HELP HER. THE PATIENT SAYS SHE USES AN INTERFERENTIAL TENS UNIT AND THAT HELPS RELIEVE SOME OF HER PAIN. THE PATIENT IS CURRENTLY USING OXYCODONE, IBUPROFEN, GABAPENTIN, AND CYCLOBENZAPRINE TO AID IN PAIN RELIEF. THE PATIENT SAYS THAT THE USE OF THESE MEDICATIONS HELPS HER REMAIN MOBILE AND FUNCTIONAL. PATIENT DENIES UNEXPLAINABLE WEIGHT LOSS, FEVER, CHILLS, NEW CHANGES ON HER URINARY OR BOWEL CONTROL. FALL RISK SCREENING: SCREENING : NO FALLS IN THE PAST YEAR. CURRENT MEDICATIONS TAKING IBUPROFEN 800 MG TABLET 1 TABLET ORALLY WITH FOOD THREE TIMES A DAY PRN FOR PAIN MDD3 TAKING GABAPENTIN 800 MG TABLET 1 TABLET ORALLY THREE TIMES A DAY FOR PAIN TAKING CYCLOBENZAPRINE HCL 10 MG TABLET 1 TABLET ORALLY FOR SPASMS AND PAIN WORKERS COMPENSATION BEFORE BEDTIME CAN REPEAT IN 4 HRS MDD2 TAKING OXYCODONE HCL 10 MG TABLET 1 ORALLY Q4H PRN PAIN MDD5 WORKERS COMPENSATION MEDICATION LIST REVIEWED AND RECONCILED WITH THE PATIENT PAST MEDICAL HISTORY CHRONIC LOW BACK AND LEG PAIN ALLERGIES SULFA (FOR ALLERGY USE ONLY): HIVES CYMBALTA: DIARRHEA, ABDOMINAL PAIN: SIDE EFFECTS SURGICAL HISTORY LUMBAR FUSION 2006 OVARIAN CYST REMOVAL 1996 TUBAL LIGATION 1987 FAMILY HISTORY FATHER: ALIVE 77 YRS, SKIN CA, DIAGNOSED WITH HYPERTENSION, HEART DISEASE, CANCER MOTHER: ALIVE 77 YRS, SKIN CA, DIAGNOSED WITH CANCER SIBLINGS: ALIVE SON(S): ALIVE 2 BROTHER(S) , 3 SISTER(S) . 3 SON(S) - HEALTHY. ALL SIBLINGS HAVE HTN1 SISTER AND 1 BROTHER HAVE HEART DISEASE. SOCIAL HISTORY GENERAL: TOBACCO USE ARE YOU A:CURRENT SMOKER ARE YOU INTERESTED IN QUITTING?NOT READY TO QUIT COUNSELED THE PATIENT ON SMOKING EFFECTS, EDUCATION [id number]/18/2019 HOW MANY CIGARETTES A DAY DO YOU SMOKE?11-20 HOW SOON AFTER YOU WAKE UP DO YOU SMOKE YOUR FIRST CIGARETTE?WITHIN 5 MIN HOW OFTEN DO YOU SMOKE CIGARETTES?EVERY DAY PATIENT COUNSELED ON THE DANGERS OF TOBACCO USE AND URGED TO QUIT:09/11/2018 ALCOHOL SCREENING DID YOU HAVE A DRINK CONTAINING ALCOHOL IN THE PAST YEAR?NO POINTS0 INTERPRETATIONNEGATIVE RECREATIONAL DRUG USE DRUG USE?NO CAFFEINE CAFFEINE USE?YES HOW OFTEN AND HOW MUCH? 3 CUPS COFFEE/DAY MOS[employer] [id number] QUAKER LANGUAGE LANGUAGES SPOKEN:ESTONIAN LEARNING BARRIERS / SPECIAL NEEDS BARRIERS TO LEARNING?NO HEARING IMPAIRED?NO VISION IMPAIRED?YES :CORRECTIVE LENSES COGNITIVELY IMPAIRED?NO READINESS TO LEARN?YES LEARNING PREFERENCES?NO LEARNING CAPABILITIES PRESENT?YES EMOTIONAL BARRIERS?NO SPECIAL DEVICES?YES : OCC. CANE VP OF GLOBAL MARKETING NEEDED?NO DOMESTIC VIOLENCE DO YOU FEEL SAFE IN YOUR ENVIRONMENT?YES OCCUPATION: DISABLED. DIET: REGULAR. EXERCISE: NONE. MARITAL STATUS: . PAIN CLINIC PFS, CLERGY, PUBLIC HEALTH REFERRALS PFS REFERRAL NEEDED?NO CLERGY REFERRAL NEEDED?NO PUBLIC HEALTH REFERRAL NEEDED?NO WAS THE PROVIDER NOTIFIED OF ANY PERTINENT INFO? N/A HAS THE PATIENT BEEN EDUCATED REGARDING HIS/HER PLAN OF CARE?YES HAS THE PATIENT BEEN EDUCATED REGARDING PAIN, THE RISK FOR PAIN, THE IMPORTANCE OF EFFECTIVE PAIN MANAGEMENT, AND THE PAIN ASSESSMENT PROCESS?YES ADVANCE DIRECTIVE ADVANCE DIRECTIVE DISCUSSED WITH PATIENT:YES 09/11/18 PT DOES NOT HAVE ANY ADVANCE DIRECTIVES AND SHE DECLINES INFORMATION ON HCP AT THIS TIME. LAS REVIEWED WITH PT 05/30/18 1013 BV08/17/18 REVIEWED WITH PT. AD09/11/18 1230 REVIEWED WITH PT LETHA. HOSPITALIZATION/MAJOR DIAGNOSTIC PROCEDURE SURGERY RELATED REVIEW OF SYSTEMS REVIEWED BY: PROVIDER: KENRICK VERNON MD . CONSTITUTIONAL: ANY CHANGE IN YOUR MEDICAL CONDITION? NO . CHILLS NO . FEVER NO . INFECTION: DO YOU HAVE NEW INFECTIONS? NO . DO YOU HAVE HISTORY OF MRSA? NO . MUSCULOSKELETAL: ANY NEW PATTERNS OF PAIN OR NUMBNESS? NO . GASTROENTEROLOGY: ANY NEW CHANGE IN BOWEL CONTROL? NO . GENITOURINARY: ANY NEW CHANGE IN BLADDER CONTROL? NO . IS THERE A CHANCE YOU COULD BE ? NO . HEMATOLOGY/LYMPH: DO YOU TAKE ANY BLOOD THINNERS? (FOR EXAMPLE- COUMADIN, PLAVIX, AGGRENOX, PLATEL, PRADAXA, OR XARELTO) NO . WHEN WAS YOUR LAST DOSE? DATE: TIME: . NEUROLOGY: HAVE YOU FALLEN IN THE PAST 12 MONTHS? NO . ANY NEW EXTREMITY NUMBNESS OR WEAKNESS? NO . CARDIOLOGY: DO YOU HAVE A PACEMAKER OR DEFIBRILLATOR? NO . RESPIRATORY: HAVE YOU BEEN SICK IN THE PAST WEEK? NO . FEVER NO . FLU LIKE SYMPTOMS? NO . COUGH NO . INTEGUMENTARY: DO YOU HAVE ANY RASHES OR OPEN SORES? NO . ALLERGIC/IMMUNO: ARE YOU ALLERGIC TO IV DYE? NO . ANY NEW ALLERGIES? NO . PSYCHIATRIC: DO YOU HAVE THOUGHTS OF HURTING YOURSELF OR SOMEONE ELSE? NO . ARE YOU ABUSED, NEGLECTED, OR IN AN UNSAFE ENVIRONMENT? NO . ENDOCRINOLOGY: ARE YOU DIABETIC? NO . OTHER: DO YOU NEED ANY PRESCRIPTIONS? YES . IF YES, PLEASE LIST: ____IBUPROFEN, OXYCODONE . ANY NEW PROBLEMS WITH YOUR MEDICATIONS? NO . WHEN DID YOU LAST EAT? ____ . WHEN DID YOU LAST DRINK? ____ . WHAT DID YOU LAST DRINK? ____ . NAME OF PERSON DRIVING YOU HOME? ____ . DO YOU HAVE ANY OTHER QUESTIONS OR CONCERNS NO . VITAL SIGNS WT 107.4 LBS, HT 61 IN, BMI 20.29 INDEX, BP 142/89 MM HG, HR 82 /MIN, RR 16 /MIN, TEMP 96.9 F, OXYGEN SAT % 97%, SAFE IN ENV? (Y/N) YES, NA INITIALS [place] 12:47, REVIEWED BY: LETHA. EXAMINATION GENERAL EXAMINATION: PATIENT IS ALERT O X 3 AND COOPERATIVE. ANTALGIC GAIT. PATIENT IS IN A FLEXED POSITION. THE PATIENT HAS DIFFICULTY STANDING. TENDERNESS IN THE LOW BACK AREA OVER THE SACROILIAC JOINT. MRI OF THE LUMBAR SPINE DONE ON 12/13/2014 SHOWS POST LAMINECTOMY CHANGES. ASSESSMENTS LUMBAR POST-LAMINECTOMY SYNDROME - M96.1 (PRIMARY) INTERVERTEBRAL DISC DISORDER WITH RADICULOPATHY OF LUMBAR REGION - M51.16 TREATMENT LUMBAR POST-LAMINECTOMY SYNDROME REFILL IBUPROFEN TABLET, 800 MG, 1 TABLET, ORALLY WITH FOOD, THREE TIMES A DAY PRN FOR PAIN MDD3, 30 DAY(S), 90, REFILLS 2 REFILL CYCLOBENZAPRINE HCL TABLET, 10 MG, 1 TABLET, ORALLY FOR SPASMS AND PAIN WORKERS COMPENSATION, BEFORE BEDTIME CAN REPEAT IN 4 HRS MDD2, 30 DAYS, 50, REFILLS 2 REFILL OXYCODONE HCL TABLET, 10 MG, 1, ORALLY, Q4H PRN PAIN MDD5, 30 DAY(S), 150, REFILLS 0 CLINICAL NOTES: WE DISCUSSED SEVERAL ISSUES WITH MRS. ALVARADO'S PAIN MANAGEMENT CASE. THE PATIENT STATES SHE IS MOVING TO [place] FOR 3 MONTHS, SO I WILL SEND HER PRESCRIPTIONS TO [facility] IN [place], [place] AND I SPOKE WITH THE PHARMACIST, VIANEY, REGARDING THIS. THE PATIENT BROUGHT HER MEDICATIONS WITH HER TO TODAY'S VISIT. URINE TOXICOLOGY DONE ON 05/30/2018 SHOWS CONCURRENT RESULTS AND WE WILL REPEAT IT TODAY. WE DISCUSSED CONSIDERING SWITCHING TO LONG ACTING OXYCODONE IN THE FUTURE. THE PATIENT WILL FOLLOW UP IN 3 MONTHS. TODAY I SPEND OVER 30 MINUTES IN THE VISIT MORE THAN HALF OF THE TIME WAS DEDICATED TO THE COORDINATION OF SERVICE TALKING WITH THE PHARMACIST IN [place], DISCUSSING ALTERNATIVES WITH THE PATIENT. INSTRUCTIONS WERE GIVEN, QUESTIONS WERE ANSWERED, PATIENT REPORTS UNDERSTANDING AND AGREES WITH THE PLAN. I, WILLIE DELGADO, DOCUMENTED THE ABOVE INFORMATION ACTING A SCRIBE FOR DR. VERNON. I HAVE REVIEWED THE ABOVE DOCUMENT, WRITTEN BY WILLIE LOPEZ AND I VERIFY THAT IT IS ACCURATE. OTHERS REFILL GABAPENTIN TABLET, 800 MG, 1 TABLET, ORALLY, THREE TIMES A DAY FOR PAIN, 30 DAY(S), 90, REFILLS 5 PROCEDURE CODES FA211 ESTABILISHED PATIENT [facility] FACILITY CHARGE G8427 CURRENT MEDS W/DOSAGES DOCUMENTED G8730 PAIN ASSESS POS TOOL F/U PLAN DOC DISPOSITION & COMMUNICATION FOLLOW UP 3 MONTHS ELECTRONICALLY SIGNED BY KENRICK VERNON MD, MD ON 09/25/2018 AT 09:49 PM EST DISCLAIMER : THIS IS A VISIT SUMMARY EXTRACTED FROM THE [employer] CHART. IT IS NOT A COPY OF THE [employer] PROGRESS NOTE. MTDD
== END ==
LOC: M PAIN 12:00
PROVIDERS: ATTEND Anesthesiology
DX: M96.1 Postlaminectomy syndrome, not elsewhere classified (principal); M51.16 Intervertebral disc disorders with radiculopathy, lumbar region; F17.210 Nicotine dependence, cigarettes, uncomplicated; Z79.1 Long term (current) use of non-steroidal anti-inflammatories (NSAID); Z79.891 Long term (current) use of opiate analgesic; Z79.899 Other long term (current) drug therapy; Z88.2 Allergy status to sulfonamides; Z88.8 Allergy status to other drugs, medicaments and biological substances

== ENCOUNTER → 2018-12-01 | Outpatient (CLI) | payer MEDICARE, SELFPAY ==
--- NOTE | 2018-12-17 00:04 | ECWPNPC ---
PATIENT NAME: SHARI ALVARADO : 1965 GENDER: FEMALE VISIT DATE: 12/01/2018 DISCHARGE DATE: 12/01/18 1156 VISIT LOCKED DATE TIME: PHYSICIAN: KENRICK VERNON MD RESOURCE: KENRICK VERNON MD REASON FOR APPOINTMENT 1. SELF PAY, 3 MONTHS/LB & LEG PAIN HISTORY OF PRESENT ILLNESS HISTORY OF PRESENT ILLNESS: PAIN THE PATIENT DESCRIBES THE PAIN... 53 YEAR OLD FEMALE PATIENT WITH A HISTORY OF LOW BACK AND LEG PAIN. THE PATIENT DESCRIBES THE PAIN ACHING, BURNING, STABBING, SHOOTING, SHARP, AND CONTINUOUS WITH A PAIN SCORE OF 6-10/10 DEPENDING ON PHYSICAL ACTIVITY. THE PATIENT SAYS THE PAIN BEGINS IN HER LOW BACK REGION AND RADIATES DOWN BOTH LEGS. THE PATIENT STATES THE PAIN IS WORSE WHEN SHE IS PHYSICAL ACTIVE. THE PATIENT HAS TRIED PAST INJECTION THERAPY, BUT SAYS HER MEDICATION IS BETTER FOR PAIN RELIEF AND HELPS HER REMAIN MOBILE AND FUNCTIONAL. THE PATIENT REPORTS HER TENS UNIT HELPS ALONG WITH OXYCODONE, IBUPROFEN, GABAPENTIN, AND CYCLOBENZAPRINE PAIN RELIEVERS. PATIENT DENIES UNEXPLAINABLE WEIGHT LOSS, FEVER, CHILLS, NEW CHANGES ON HER URINARY OR BOWEL CONTROL. FALL RISK SCREENING: SCREENING :NO FALLS REPORTED IN THE LAST YEAR CURRENT MEDICATIONS TAKING GABAPENTIN 800 MG TABLET 1 TABLET ORALLY THREE TIMES A DAY FOR PAIN TAKING IBUPROFEN 800 MG TABLET 1 TABLET ORALLY WITH FOOD THREE TIMES A DAY PRN FOR PAIN MDD3 TAKING CYCLOBENZAPRINE HCL 10 MG TABLET 1 TABLET ORALLY FOR SPASMS AND PAIN WORKERS COMPENSATION BEFORE BEDTIME CAN REPEAT IN 4 HRS MDD2 TAKING OXYCODONE HCL 10 MG TABLET 1 ORALLY Q4H PRN PAIN MDD5 MEDICATION LIST REVIEWED AND RECONCILED WITH THE PATIENT PAST MEDICAL HISTORY CHRONIC LOW BACK AND LEG PAIN ALLERGIES SULFA (FOR ALLERGY USE ONLY): HIVES CYMBALTA: DIARRHEA, ABDOMINAL PAIN - SIDE EFFECTS SURGICAL HISTORY LUMBAR FUSION 2006 OVARIAN CYST REMOVAL 1996 TUBAL LIGATION 1987 FAMILY HISTORY FATHER: ALIVE 77 YRS, SKIN CA, DIAGNOSED WITH HYPERTENSION, HEART DISEASE, CANCER MOTHER: ALIVE 77 YRS, SKIN CA, CANCER SIBLINGS: ALIVE SON(S): ALIVE 2 BROTHER(S) , 3 SISTER(S) . 3 SON(S) - HEALTHY. ALL SIBLINGS HAVE HTN1 SISTER AND 1 BROTHER HAVE HEART DISEASE. SOCIAL HISTORY GENERAL: TOBACCO USE ARE YOU A:CURRENT SMOKER ARE YOU INTERESTED IN QUITTING?NOT READY TO QUIT COUNSELED THE PATIENT ON SMOKING EFFECTS, EDUCATION [id number]/18/2019 HOW MANY CIGARETTES A DAY DO YOU SMOKE?11-20 HOW SOON AFTER YOU WAKE UP DO YOU SMOKE YOUR FIRST CIGARETTE?WITHIN 5 MIN HOW OFTEN DO YOU SMOKE CIGARETTES?EVERY DAY PATIENT COUNSELED ON THE DANGERS OF TOBACCO USE AND URGED TO QUIT:12/01/2018 DIET: REGULAR. LANGUAGE LANGUAGES SPOKEN:DIVEHI DOMESTIC VIOLENCE DO YOU FEEL SAFE IN YOUR ENVIRONMENT?YES RECREATIONAL DRUG USE DRUG USE? NO. EXERCISE: NONE. 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?NO PAIN CLINIC PFS, CLERGY, PUBLIC HEALTH REFERRALS PFS REFERRAL NEEDED?NO CLERGY REFERRAL NEEDED?NO PUBLIC HEALTH REFERRAL NEEDED?NO WAS THE PROVIDER NOTIFIED OF ANY PERTINENT INFO?YES N/A HAS THE PATIENT BEEN EDUCATED REGARDING HIS/HER PLAN OF CARE?YES HAS THE PATIENT BEEN EDUCATED REGARDING PAIN, THE RISK FOR PAIN, THE IMPORTANCE OF EFFECTIVE PAIN MANAGEMENT, AND THE PAIN ASSESSMENT PROCESS?YES LATEX QUESTIONNAIRE LATEX ALLERGY : HAVE YOU EVER DEVELOPED ANY TYPE OF REACTION AFTER HANDLING LATEX PRODUCTS SUCH RUBBER GLOVES, CONDOMS, DIAPHRAGMS, BALLOONS, SOCKS, OR UNDERWEAR?NO LATEX ALLERGY : HAVE YOU EVER DEVELOPED ANY TYPE OF REACTION DURING OR AFTER DENTAL APPOINTMENT, VAGINAL/RECTAL EXAMINATION, SURGICAL PROCEDURE, OR ANY OTHER EXPOSURE?NO LATEX RISK : HAVE YOU EVER HAD ANY DIFFICULTY BREATHING OR HIVES AFTER EATING OR HANDLING ANY FRUITS, OR VEGETABLES; SUCH KIWI, BANANAS, STONE FRUITS, OR CHESTNUTSNO LATEX RISK : DO YOU HAVE A PREVIOUS PERSONAL HISTORY OF MORE THAN NINE SURGERIES, SPINA BIFIDA, OR REPEATED CATHERTIZATIONS? NO LATEX RISK : ARE YOU FREQUENTLY EXPOSED TO LATEX PRODUCTS IN YOUR OCCUPATION?NO DATE ASKED : 12/01/2018 CAFFEINE CAFFEINE USE?YES HOW OFTEN AND HOW MUCH? 3 CUPS COFFEE/DAY ADVANCE DIRECTIVE ADVANCE DIRECTIVE DISCUSSED WITH PATIENT:YES PT DOES NOT HAVE ANY ADVANCE DIRECTIVES AND SHE DECLINES INFORMATION ON HCP AT THIS TIME. VOODOO [id number] SPIRITISM MARITAL STATUS: . ALCOHOL SCREENING DID YOU HAVE A DRINK CONTAINING ALCOHOL IN THE PAST YEAR?NO POINTS0 INTERPRETATIONNEGATIVE OCCUPATION: DISABLED. REVIEWED WITH PT 05/30/18 1013 BV1/24/19 REVIEWED WITH PT. AD09/11/18 1230 REVIEWED WITH PT LAS. HOSPITALIZATION/MAJOR DIAGNOSTIC PROCEDURE SURGERY RELATED REVIEW OF SYSTEMS REVIEWED BY: PROVIDER: KENRICK VERNON MD . CONSTITUTIONAL: ANY CHANGE IN YOUR MEDICAL CONDITION? NO . CHILLS NO . FEVER NO . INFECTION: DO YOU HAVE NEW INFECTIONS? NO . DO YOU HAVE HISTORY OF MRSA? NO . MUSCULOSKELETAL: ANY NEW PATTERNS OF PAIN OR NUMBNESS? YES, RIGHT LOW BACK IS DIFFERENT, PT STATES THAT IT IS A "CATCHING" SENSATION. SIMILAR TO SPASM . GASTROENTEROLOGY: ANY NEW CHANGE IN BOWEL CONTROL? NO . GENITOURINARY: ANY NEW CHANGE IN BLADDER CONTROL? NO . IS THERE A CHANCE YOU COULD BE ? NO . HEMATOLOGY/LYMPH: DO YOU TAKE ANY BLOOD THINNERS? (FOR EXAMPLE- COUMADIN, PLAVIX, AGGRENOX, PLATEL, PRADAXA, OR XARELTO) NO . WHEN WAS YOUR LAST DOSE? DATE: TIME: . NEUROLOGY: HAVE YOU FALLEN IN THE PAST 12 MONTHS? NO . ANY NEW EXTREMITY NUMBNESS OR WEAKNESS? NO . CARDIOLOGY: DO YOU HAVE A PACEMAKER OR DEFIBRILLATOR? NO . RESPIRATORY: HAVE YOU BEEN SICK IN THE PAST WEEK? YES, JUST A REGULAR COLD, CLEARED UP A FEW DAYS AGO . FEVER NO . FLU LIKE SYMPTOMS? NO . COUGH YES, COUGH NO FEVER . INTEGUMENTARY: DO YOU HAVE ANY RASHES OR OPEN SORES? NO . ALLERGIC/IMMUNO: ARE YOU ALLERGIC TO IV DYE? NO . ANY NEW ALLERGIES? NO . PSYCHIATRIC: DO YOU HAVE THOUGHTS OF HURTING YOURSELF OR SOMEONE ELSE? NO . ARE YOU ABUSED, NEGLECTED, OR IN AN UNSAFE ENVIRONMENT? NO . ENDOCRINOLOGY: ARE YOU DIABETIC? NO . OTHER: DO YOU NEED ANY PRESCRIPTIONS? NO . IF YES, PLEASE LIST: ____ . ANY NEW PROBLEMS WITH YOUR MEDICATIONS? NO . WHEN DID YOU LAST EAT? ____ . WHEN DID YOU LAST DRINK? ____ . WHAT DID YOU LAST DRINK? ____ . NAME OF PERSON DRIVING YOU HOME? ____ . DO YOU HAVE ANY OTHER QUESTIONS OR CONCERNS NO . VITAL SIGNS WT 109 LBS, HT 61 IN, BMI 20.59 INDEX, BP 130/69 MM HG, HR 83 /MIN, RR 16 /MIN, TEMP 96.9 F, OXYGEN SAT % 96%, SAFE IN ENV? (Y/N) Y, NA INITIALS WV 10:54, REVIEWED BY: PAZ. EXAMINATION GENERAL EXAMINATION: PATIENT IS ALERT O X 3 AND COOPERATIVE. PATIENT REMAINS IN A FLEX POSITION. ANTALGIC GAIT. TENDERNESS IN THE LOW BACK. TENDER TO THE TOUCH OVER THE RIGHT SACROILIAC JOINT. MRI OF THE LUMBAR SPINE DONE ON 12/13/2014 SHOWS LAMINECTOMY CHANGES. ASSESSMENTS LUMBAR POST-LAMINECTOMY SYNDROME - M96.1 (PRIMARY) TREATMENT LUMBAR POST-LAMINECTOMY SYNDROME CLINICAL NOTES: WE DISCUSSED SEVERAL ISSUES WITH MS. ALVARADO' PAIN MANAGEMENT CASE. I DISCUSSED THE RISKS ASSOCIATED WITH THE USE OF NARCOTICS INCLUDING THE POSSIBLE DEVELOPMENT OF ADDICTION OR TOLERANCE AND THE PATIENT VERBALIZED UNDERSTANDING. I SUGGESTED A DCS TRIAL AN OPTION FOR THE FUTURE AND THE PATIENT SAID SHE WILL THINK ABOUT IT. I WILL START THE PATIENT ON XTAMPZA ER 20 MG TWICE A DAY FOR PAIN RELIEF. THE PATIENT CURRENTLY USES OXYCODONE 10 MG 5 TIMES PER DAY AND NIGHT. I WOULD LIKE TO SEE IF THE XTAMPZA WILL BE A BETTER ALTERNATIVE FOR THE OXYCODONE. THE PATIENT BROUGHT HER FULL MEDICATION BOTTLES TO THE APPOINTMENT. ISTOP _# [id number] WAS REVIEWED. UTOX DONE ON 09/11/2018 SHOWS CONCURRENT RESULTS. THE PATIENT WILL FOLLOW UP IN 3 MONTHS. INSTRUCTIONS WERE GIVEN, QUESTIONS WERE ANSWERED, PATIENT REPORTS UNDERSTANDING AND AGREES WITH THE PLAN. I, BANDAR RIOJAS, DOCUMENTED THE ABOVE INFORMATION ACTING A SCRIBE FOR DR. VERNON. I HAVE REVIEWED THE ABOVE DOCUMENT, WRITTEN BY BANDAR LOPEZ AND I VERIFY THAT IT IS ACCURATE. . OTHERS START XTAMPZA ER CAPSULE ER 12 HOUR ABUSE-DETERRENT, 18 MG, 1 CAPSULE WITH FOOD, ORALLY FOR PAIN, EVERY 12 HRS MDD2, 30 DAYS, 60, REFILLS 0 PREVENTIVE MEDICINE PAIN CLINIC TEACHING: MEDICATIONS PRINTED AND REVIEWED INFORMATION ON NEW MEDICATION, XTAMPZA, WITH PATIENT. PATIENT VERBALIZED AN UNDERSTANDING. NAM BOYKIN 12/01/2018 11:52:32 AM > . PROCEDURE CODES FA211 ESTABILISHED PATIENT [facility] FACILITY CHARGE G8427 CURRENT MEDS W/DOSAGES DOCUMENTED G8730 PAIN ASSESS POS TOOL F/U PLAN DOC DISPOSITION & COMMUNICATION FOLLOW UP 3 MONTHS (REASON: MEDICATION) ELECTRONICALLY SIGNED BY KENRICK VERNON MD, MD ON 12/16/2018 AT 03:13 PM EDT DISCLAIMER : THIS IS A VISIT SUMMARY EXTRACTED FROM THE [employer] CHART. IT IS NOT A COPY OF THE [employer] PROGRESS NOTE. MARTIN
== END ==
LOC: M PAIN 10:30
PROVIDERS: ATTEND Anesthesiology
DX: M96.1 Postlaminectomy syndrome, not elsewhere classified (principal); F17.210 Nicotine dependence, cigarettes, uncomplicated; Z79.891 Long term (current) use of opiate analgesic; Z79.899 Other long term (current) drug therapy; Z88.2 Allergy status to sulfonamides; Z88.8 Allergy status to other drugs, medicaments and biological substances

== ENCOUNTER → 2019-03-27 | Outpatient (CLI) | payer MEDICARE, SELFPAY ==
--- NOTE | 2019-04-08 23:18 | ECWPNPC ---
PATIENT NAME: SHARI ALVARADO : 1965 GENDER: FEMALE VISIT DATE: 03/27/2019 DISCHARGE DATE: 03/27/19 1621 VISIT LOCKED DATE TIME: PHYSICIAN: KENRICK VERNON MD RESOURCE: KENRICK VERNON MD REASON FOR APPOINTMENT 1. SELF PAY, 3 MONTHS HISTORY OF PRESENT ILLNESS HISTORY OF PRESENT ILLNESS: PAIN THE PATIENT DESCRIBES THE PAIN... 53 YEAR OLD FEMALE PATIENT WITH A HISTORY OF CHRONIC LOW BACK AND LEG PAIN. THE PATIENT DESCRIBES THE PAIN ACHING, BURNING, STABBING, SHOOTING, SHARP, DAILY, AND CONTINUOUS WITH A PAIN SCORE OF 8-9/10 DEPENDING ON PHYSICAL ACTIVITY. THE PATIENT STATES HER PAIN BEGINS IN HER LOW BACK AND RADIATES DOWN BOTH LEGS. THE PATIENT SAYS SHE HAD A BACK SURGERY DONE AND HAS TRIED INJECTION THERAPY IN THE PAST, BUT HER PAIN STILL PERSISTS. THE PATIENT IS USING OXYCODONE HCL 10 MG UP TO 5 TABLETS DAILY TO AID IN PAIN RELIEF. THE PATIENT TRIED TO CHANGE TO XTAMPZA AFTER A PREVIOUS VISIT, HOWEVER SHE SAYS THE PRESCRIPTION WAS VERY EXPENSIVE FOR HER TO PAY OUT OF POCKET AND SHE WOULD LIKE TO CONTINUE WITH THE ORIGINAL MEDICATION. PATIENT DENIES UNEXPLAINABLE WEIGHT LOSS, FEVER, CHILLS, NEW CHANGES ON HER URINARY OR BOWEL CONTROL. FALL RISK SCREENING: SCREENING :NO FALLS REPORTED IN THE LAST YEAR CURRENT MEDICATIONS TAKING IBUPROFEN 800 MG TABLET 1 TABLET ORALLY WITH FOOD THREE TIMES A DAY PRN FOR PAIN MDD3 TAKING OXYCODONE HCL 10 MG TABLET 1 ORALLY Q4H PRN PAIN MDD5 TAKING GABAPENTIN 800 MG TABLET 1 TABLET ORALLY THREE TIMES A DAY FOR PAIN TAKING CYCLOBENZAPRINE HCL 10 MG TABLET 1 TABLET ORALLY FOR SPASMS AND PAIN WORKERS COMPENSATION BEFORE BEDTIME CAN REPEAT IN 4 HRS MDD2 NOT-TAKING XTAMPZA ER 18 MG CAPSULE ER 12 HOUR ABUSE-DETERRENT 1 CAPSULE WITH FOOD ORALLY FOR PAIN EVERY 12 HRS MDD2 MEDICATION LIST REVIEWED AND RECONCILED WITH THE PATIENT PAST MEDICAL HISTORY CHRONIC LOW BACK AND LEG PAIN ALLERGIES SULFA (FOR ALLERGY USE ONLY): HIVES CYMBALTA: DIARRHEA, ABDOMINAL PAIN - SIDE EFFECTS SURGICAL HISTORY LUMBAR FUSION 2006 OVARIAN CYST REMOVAL 1996 TUBAL LIGATION 1987 FAMILY HISTORY FATHER: ALIVE 77 YRS, SKIN CA, DIAGNOSED WITH HYPERTENSION, UNSPECIFIED HEART DISEASE, OTHER MALIGNANT NEOPLASM OF UNSPECIFIED SITE MOTHER: ALIVE 77 YRS, SKIN CA, OTHER MALIGNANT NEOPLASM OF UNSPECIFIED SITE SIBLINGS: ALIVE SON(S): ALIVE 2 BROTHER(S) , 3 SISTER(S) . 3 SON(S) - HEALTHY. ALL SIBLINGS HAVE HTN1 SISTER AND 1 BROTHER HAVE HEART DISEASE. SOCIAL HISTORY GENERAL: TOBACCO USE ARE YOU A:CURRENT SMOKER ARE YOU INTERESTED IN QUITTING?NOT READY TO QUIT COUNSELED THE PATIENT ON SMOKING EFFECTS, EDUCATION [id number]/03/2019 HOW MANY CIGARETTES A DAY DO YOU SMOKE?11-20 HOW SOON AFTER YOU WAKE UP DO YOU SMOKE YOUR FIRST CIGARETTE?WITHIN 5 MIN HOW OFTEN DO YOU SMOKE CIGARETTES?EVERY DAY PATIENT COUNSELED ON THE DANGERS OF TOBACCO USE AND URGED TO QUIT:03/27/2019 DIET: REGULAR. LANGUAGE LANGUAGES SPOKEN:AUSTRALIAN DOMESTIC VIOLENCE DO YOU FEEL SAFE IN YOUR ENVIRONMENT?YES RECREATIONAL DRUG USE DRUG USE? NO. EXERCISE: NONE. 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 NEEDED?NO PAIN CLINIC PFS, CLERGY, PUBLIC HEALTH REFERRALS PFS REFERRAL NEEDED?NO CLERGY REFERRAL NEEDED?NO PUBLIC HEALTH REFERRAL NEEDED?NO WAS THE PROVIDER NOTIFIED OF ANY PERTINENT INFO?YES N/A HAS THE PATIENT BEEN EDUCATED REGARDING HIS/HER PLAN OF CARE?YES HAS THE PATIENT BEEN EDUCATED REGARDING PAIN, THE RISK FOR PAIN, THE IMPORTANCE OF EFFECTIVE PAIN MANAGEMENT, AND THE PAIN ASSESSMENT PROCESS?YES LATEX QUESTIONNAIRE LATEX ALLERGY : HAVE YOU EVER DEVELOPED ANY TYPE OF REACTION AFTER HANDLING LATEX PRODUCTS SUCH RUBBER GLOVES, CONDOMS, DIAPHRAGMS, BALLOONS, SOCKS, OR UNDERWEAR?NO LATEX ALLERGY : HAVE YOU EVER DEVELOPED ANY TYPE OF REACTION DURING OR AFTER DENTAL APPOINTMENT, VAGINAL/RECTAL EXAMINATION, SURGICAL PROCEDURE, OR ANY OTHER EXPOSURE?NO LATEX RISK : HAVE YOU EVER HAD ANY DIFFICULTY BREATHING OR HIVES AFTER EATING OR HANDLING ANY FRUITS, OR VEGETABLES; SUCH KIWI, BANANAS, STONE FRUITS, OR CHESTNUTSNO LATEX RISK : DO YOU HAVE A PREVIOUS PERSONAL HISTORY OF MORE THAN NINE SURGERIES, SPINA BIFIDA, OR REPEATED CATHERIZATIONS? NO LATEX RISK : ARE YOU FREQUENTLY EXPOSED TO LATEX PRODUCTS IN YOUR OCCUPATION?NO DATE ASKED : 12/01/2018 CAFFEINE CAFFEINE USE?YES HOW OFTEN AND HOW MUCH? 3 CUPS COFFEE/DAY ADVANCE DIRECTIVE ADVANCE DIRECTIVE DISCUSSED WITH PATIENT:YES PT DOES NOT HAVE ANY ADVANCE DIRECTIVES AND SHE DECLINES INFORMATION ON HCP AT THIS TIME. ZOROASTRIANISM [id number] ORTHODOX MARITAL STATUS: . ALCOHOL SCREENING DID YOU HAVE A DRINK CONTAINING ALCOHOL IN THE PAST YEAR?NO POINTS0 INTERPRETATIONNEGATIVE OCCUPATION: DISABLED. REVIEWED WITH PT 05/30/18 1013 BV08/17/18 REVIEWED WITH PT. AD09/11/18 1230 REVIEWED WITH PT LAS03/27/19 1415 REVIEWED WITH PATIENT LAS. HOSPITALIZATION/MAJOR DIAGNOSTIC PROCEDURE SURGERY RELATED REVIEW OF SYSTEMS REVIEWED BY: PROVIDER: KENRICK VERNON MD . CONSTITUTIONAL: ANY CHANGE IN YOUR MEDICAL CONDITION? NO . CHILLS NO . FEVER NO . INFECTION: DO YOU HAVE NEW INFECTIONS? NO . DO YOU HAVE HISTORY OF MRSA? NO . MUSCULOSKELETAL: ANY NEW PATTERNS OF PAIN OR NUMBNESS? YES PT REPORTS INCREASED PAIN IN RIGHT HIP/SIDE, AND BOTH UPPER AND LOWER BACK. SHE ALSO REPORTS THAT WHEN SHE RAISES HER ARMS, HER HANDS GO NUMB. THIS HAS BEEN GOING FOR SEVERAL WEEKS, NO PRECIPITATING EVENT OR INJURY. . GASTROENTEROLOGY: ANY NEW CHANGE IN BOWEL CONTROL? NO . GENITOURINARY: ANY NEW CHANGE IN BLADDER CONTROL? NO . IS THERE A CHANCE YOU COULD BE ? NO . HEMATOLOGY/LYMPH: DO YOU TAKE ANY BLOOD THINNERS? (FOR EXAMPLE- COUMADIN, PLAVIX, AGGRENOX, PLATEL, PRADAXA, OR XARELTO) NO . WHEN WAS YOUR LAST DOSE? DATE: TIME: . NEUROLOGY: HAVE YOU FALLEN IN THE PAST 12 MONTHS? NO . ANY NEW EXTREMITY NUMBNESS OR WEAKNESS? NO . CARDIOLOGY: DO YOU HAVE A PACEMAKER OR DEFIBRILLATOR? NO . RESPIRATORY: HAVE YOU BEEN SICK IN THE PAST WEEK? NO . FEVER NO . FLU LIKE SYMPTOMS? NO . COUGH NO . INTEGUMENTARY: DO YOU HAVE ANY RASHES OR OPEN SORES? NO . ALLERGIC/IMMUNO: ARE YOU ALLERGIC TO IV DYE? NO . ANY NEW ALLERGIES? NO . PSYCHIATRIC: DO YOU HAVE THOUGHTS OF HURTING YOURSELF OR SOMEONE ELSE? NO . ARE YOU ABUSED, NEGLECTED, OR IN AN UNSAFE ENVIRONMENT? NO . ENDOCRINOLOGY: ARE YOU DIABETIC? NO . OTHER: DO YOU NEED ANY PRESCRIPTIONS? NO . IF YES, PLEASE LIST: ____ . ANY NEW PROBLEMS WITH YOUR MEDICATIONS? NO . WHEN DID YOU LAST EAT? ____ . WHEN DID YOU LAST DRINK? ____ . WHAT DID YOU LAST DRINK? ____ . NAME OF PERSON DRIVING YOU HOME? ____ . DO YOU HAVE ANY OTHER QUESTIONS OR CONCERNS YES PT IS GOING TO [place] FOR THE WINTER, LEAVING HERE IN [place], WOULD LIKE TO DISCUSS HER PRESCRIPTIONS. . VITAL SIGNS WT 107.6 LBS, HT 61 IN, BMI 20.33 INDEX, BP 115/73 MM HG, HR 85 /MIN, RR 16 /MIN, TEMP 97.2 F, OXYGEN SAT % 97%, SAFE IN ENV? (Y/N) YES, NA INITIALS AW 1409, REVIEWED BY: LETHA. EXAMINATION GENERAL EXAMINATION: PATIENT IS ALERT O X 3 AND COOPERATIVE. PATIENT STANDS IN A FLEX POSITION AND EXPERIENCES PAIN IF SHE TRIES TO STRAIGHTEN HER BACK. PATIENT IS USING HER TENS UNIT. ANTALGIC WALK. TENDERNESS IN THE LOW BACK. BOTH LEGS ARE VERY WEAK AT EXTENSION AND FLEXION. STRAIGHT LEG RAISE OF BOTH LEGS ARE POSITIVE AT 50 DEGREES FOR RADICULOPATHY. MRI OF THE LUMBAR SPINE DONE ON 12/13/2014 SHOWS POST SURGICAL CHANGES AT L5-S1 AND DISC PROTRUSIONS AT MULTIPLE LEVELS. ASSESSMENTS LUMBAR POST-LAMINECTOMY SYNDROME - M96.1 (PRIMARY) TREATMENT LUMBAR POST-LAMINECTOMY SYNDROME CLINICAL NOTES: WE DISCUSSED SEVERAL ISSUES WITH MS. ALVARADO' PAIN MANAGEMENT CASE. I HAD PREVIOUSLY CHANGED THE PATIENT'S OXYCODONE TO XTAMPZA, HOWEVER THE PATIENT SAID THE PRESCRIPTION IS TOO EXPENSIVE FOR HER TO PAY OUT OF POCKET. I CALLED THE PHARMACY TODAY TO CHECK IN OXYCONTIN AND I WAS INFORMED BY THE PHARMACISTS OF THE SAME SITUATION-VERY EXPENSIVE. THEREFORE, THE PATIENT WILL CONTINUE WITH HER ORIGINAL OXYCODONE PRESCRIPTION OF UP TO 5 TABLETS EACH DAY TO AID IN PAIN RELIEF. URINE TOXICOLOGY DONE ON 09/11/2018 SHOWS CONCURRENT RESULTS. PILL COUNTING DONE ON 08/17/2018 SHOWS APPROPRIATE AMOUNT. ANOTHER UTOX AND PILL COUNT WILL BE PERFORMED TODAY. THE PATIENT WILL BE TRAVELING TO [place] SOON, THEREFORE THERE IS NO NEED FOR ANY INJECTIONS OR ALTERNATIVES FOR THE MOMENT. THE PATIENT DOES NOT NEED ANY PRESCRIPTION REFILLS AT THIS TIME. THE PATIENT WILL FOLLOW UP BEFORE HER [place] TRIP TO DISCUSS ANY ALTERNATIVES AND TO ENSURE HER [place] [facility] IS IN THE SYSTEM TO RECEIVE ELECTRONIC PRESCRIPTIONS. I DISCUSSED WITH THE PATIENT THAT SHE IS A CANDIDATE FOR A DCS TRIAL AND SHE SAID SHE WILL CONSIDER IT FOR THE FUTURE. I DISCUSSED WITH THE PATIENT THAT SHOULD SHE WANT TO CONTINUE MEDICATION MANAGEMENT ONCE SHE RETURNS TO [place] IN THE SPRING, I WILL REFER HER TO [facility] PALL[facility] PROGRAM TO CONSIDER CONTINUING HER MEDICATION MANAGEMENT. I WAS WITH THE PATIENT TODAY OVER 30 MINUTES MORE THAN HALF OF THE TIME WAS DISCUSSING THE CASE WITH THE PATIENT, DISCUSSING THE CASE WITH THE PHARMACIST, IN THE COORDINATION OF CARE. THE PATIENT WILL FOLLOW UP IN 3 WEEKS WITH THE NURSE PRACTITIONER. INSTRUCTIONS WERE GIVEN, QUESTIONS WERE ANSWERED, PATIENT REPORTS UNDERSTANDING AND AGREES WITH THE PLAN. I, BANDAR RIOJAS, DOCUMENTED THE ABOVE INFORMATION ACTING A SCRIBE FOR DR. VERNON. I HAVE REVIEWED THE ABOVE DOCUMENT, WRITTEN BY BANDAR SANDERSIBDeb AND I VERIFY THAT IT IS ACCURATE. . 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 IT IS NOT A COPY OF THE [employer] PROGRESS NOTE. MARTIN
== END ==
LOC: M PAIN 13:45
PROVIDERS: ATTEND Anesthesiology
DX: M96.1 Postlaminectomy syndrome, not elsewhere classified (principal); F17.210 Nicotine dependence, cigarettes, uncomplicated; Z88.2 Allergy status to sulfonamides; Z88.8 Allergy status to other drugs, medicaments and biological substances; Z79.891 Long term (current) use of opiate analgesic; Z79.899 Other long term (current) drug therapy

== ENCOUNTER → 2019-04-17 | Outpatient (CLI) | payer MEDICARE, SELFPAY ==
--- NOTE | 2019-04-20 00:16 | ECWPNPC ---
PATIENT NAME: SHARI ALVARADO : 1965 GENDER: FEMALE VISIT DATE: 04/17/2019 DISCHARGE DATE: 04/17/19 1521 VISIT LOCKED DATE TIME: PHYSICIAN: TONIA LAGUERRE RESOURCE: TONIA LAGUERRE REASON FOR APPOINTMENT 1. F/U WITH TONIA PER DR. Triana CHECKING IN HISTORY OF PRESENT ILLNESS HISTORY OF PRESENT ILLNESS: PAIN THE PATIENT DESCRIBES THE PAIN... 54-YEAR-OLD FEMALE IN FOR CHRONIC PAIN FOLLOW-UP. SHE RATES HER PAIN CURRENTLY AT AN 8 OUT OF 10 AND DESCRIBES IT SHARP, BURNING, STABBING, AND SHOOTING. SHE FEELS THE MEDICATIONS ARE WORKING WELL AND DENIES MED SIDE EFFECTS. SHE WILL BE LEAVING FOR [place] ON MAY 02. FALL RISK SCREENING: SCREENING :NO FALLS REPORTED IN THE LAST YEAR CURRENT MEDICATIONS TAKING IBUPROFEN 800 MG TABLET 1 TABLET ORALLY WITH FOOD THREE TIMES A DAY PRN FOR PAIN MDD3 TAKING OXYCODONE HCL 10 MG TABLET 1 ORALLY Q4H PRN PAIN MDD5 TAKING GABAPENTIN 800 MG TABLET 1 TABLET ORALLY THREE TIMES A DAY FOR PAIN TAKING CYCLOBENZAPRINE HCL 10 MG TABLET 1 TABLET ORALLY FOR SPASMS AND PAIN WORKERS COMPENSATION BEFORE BEDTIME CAN REPEAT IN 4 HRS MDD2 NOT-TAKING XTAMPZA ER 18 MG CAPSULE ER 12 HOUR ABUSE-DETERRENT 1 CAPSULE WITH FOOD ORALLY FOR PAIN EVERY 12 HRS MDD2 MEDICATION LIST REVIEWED AND RECONCILED WITH THE PATIENT PAST MEDICAL HISTORY CHRONIC LOW BACK AND LEG PAIN ALLERGIES SULFA (FOR ALLERGY USE ONLY): HIVES CYMBALTA: DIARRHEA, ABDOMINAL PAIN - SIDE EFFECTS SURGICAL HISTORY LUMBAR FUSION 2006 OVARIAN CYST REMOVAL 1996 TUBAL LIGATION 1987 FAMILY HISTORY FATHER: ALIVE 77 YRS, SKIN CA, DIAGNOSED WITH HYPERTENSION, UNSPECIFIED HEART DISEASE, OTHER MALIGNANT NEOPLASM OF UNSPECIFIED SITE MOTHER: ALIVE 77 YRS, SKIN CA, OTHER MALIGNANT NEOPLASM OF UNSPECIFIED SITE SIBLINGS: ALIVE SON(S): ALIVE 2 BROTHER(S) , 3 SISTER(S) . 3 SON(S) - HEALTHY. ALL SIBLINGS HAVE HTN1 SISTER AND 1 BROTHER HAVE HEART DISEASE. SOCIAL HISTORY GENERAL: TOBACCO USE ARE YOU A:CURRENT SMOKER ARE YOU INTERESTED IN QUITTING?NOT READY TO QUIT COUNSELED THE PATIENT ON SMOKING EFFECTS, EDUCATION [id number]/03/2019 HOW MANY CIGARETTES A DAY DO YOU SMOKE?11-20 HOW SOON AFTER YOU WAKE UP DO YOU SMOKE YOUR FIRST CIGARETTE?WITHIN 5 MIN HOW OFTEN DO YOU SMOKE CIGARETTES?EVERY DAY PATIENT COUNSELED ON THE DANGERS OF TOBACCO USE AND URGED TO QUIT:04/17/2019 DIET: REGULAR. LANGUAGE LANGUAGES SPOKEN:[place] DOMESTIC VIOLENCE DO YOU FEEL SAFE IN YOUR ENVIRONMENT?YES RECREATIONAL DRUG USE DRUG USE? NO. EXERCISE: NONE. LEARNING BARRIERS / SPECIAL NEEDS BARRIERS TO LEARNING?NO HEARING IMPAIRED?NO VISION IMPAIRED?YES COGNITIVELY IMPAIRED?NO :CORRECTIVE LENSES READINESS TO LEARN?YES LEARNING PREFERENCES?NO LEARNING CAPABILITIES PRESENT?YES EMOTIONAL BARRIERS?NO SPECIAL DEVICES?YES : OCC. CANE POLYMER SCIENTIST NEEDED?NO PAIN CLINIC PFS, CLERGY, PUBLIC HEALTH REFERRALS PFS REFERRAL NEEDED?NO CLERGY REFERRAL NEEDED?NO PUBLIC HEALTH REFERRAL NEEDED?NO WAS THE PROVIDER NOTIFIED OF ANY PERTINENT INFO?YES N/A HAS THE PATIENT BEEN EDUCATED REGARDING HIS/HER PLAN OF CARE?YES HAS THE PATIENT BEEN EDUCATED REGARDING PAIN, THE RISK FOR PAIN, THE IMPORTANCE OF EFFECTIVE PAIN MANAGEMENT, AND THE PAIN ASSESSMENT PROCESS?YES LATEX QUESTIONNAIRE LATEX ALLERGY : HAVE YOU EVER DEVELOPED ANY TYPE OF REACTION AFTER HANDLING LATEX PRODUCTS SUCH RUBBER GLOVES, CONDOMS, DIAPHRAGMS, BALLOONS, SOCKS, OR UNDERWEAR?NO LATEX ALLERGY : HAVE YOU EVER DEVELOPED ANY TYPE OF REACTION DURING OR AFTER DENTAL APPOINTMENT, VAGINAL/RECTAL EXAMINATION, SURGICAL PROCEDURE, OR ANY OTHER EXPOSURE?NO LATEX RISK : HAVE YOU EVER HAD ANY DIFFICULTY BREATHING OR HIVES AFTER EATING OR HANDLING ANY FRUITS, OR VEGETABLES; SUCH KIWI, BANANAS, STONE FRUITS, OR CHESTNUTSNO LATEX RISK : DO YOU HAVE A PREVIOUS PERSONAL HISTORY OF MORE THAN NINE SURGERIES, SPINA BIFIDA, OR REPEATED CATHERIZATIONS? NO LATEX RISK : ARE YOU FREQUENTLY EXPOSED TO LATEX PRODUCTS IN YOUR OCCUPATION?NO DATE ASKED : 04/17/2019 CAFFEINE CAFFEINE USE?YES HOW OFTEN AND HOW MUCH? 3 CUPS COFFEE/DAY ADVANCE DIRECTIVE ADVANCE DIRECTIVE DISCUSSED WITH PATIENT:YES PT DOES NOT HAVE ANY ADVANCE DIRECTIVES AND SHE DECLINES INFORMATION ON HCP AT THIS TIME. SPIRITISM [id number] AMISH MARITAL STATUS: . ALCOHOL SCREENING DID YOU HAVE A DRINK CONTAINING ALCOHOL IN THE PAST YEAR?NO POINTS0 INTERPRETATIONNEGATIVE OCCUPATION: DISABLED. REVIEWED WITH PT 05/30/18 1013 BV08/17/18 REVIEWED WITH PT. AD09/11/18 1230 REVIEWED WITH PT LAS03/27/19 1415 REVIEWED WITH PATIENT LAS. HOSPITALIZATION/MAJOR DIAGNOSTIC PROCEDURE SURGERY RELATED REVIEW OF SYSTEMS REVIEWED BY: PROVIDER: CHRISTOPHER SHADE SHOWER SCREEN INSTALLER-C . CONSTITUTIONAL: ANY CHANGE IN YOUR MEDICAL CONDITION? NO . CHILLS NO . FEVER NO . INFECTION: DO YOU HAVE NEW INFECTIONS? NO . DO YOU HAVE HISTORY OF MRSA? NO . MUSCULOSKELETAL: ANY NEW PATTERNS OF PAIN OR NUMBNESS? NO . GASTROENTEROLOGY: ANY NEW CHANGE IN BOWEL CONTROL? NO . GENITOURINARY: ANY NEW CHANGE IN BLADDER CONTROL? NO . IS THERE A CHANCE YOU COULD BE ? NO . HEMATOLOGY/LYMPH: DO YOU TAKE ANY BLOOD THINNERS? (FOR EXAMPLE- COUMADIN, PLAVIX, AGGRENOX, PLATEL, PRADAXA, OR XARELTO) NO . WHEN WAS YOUR LAST DOSE? DATE: TIME: . NEUROLOGY: HAVE YOU FALLEN IN THE PAST 12 MONTHS? NO . ANY NEW EXTREMITY NUMBNESS OR WEAKNESS? NO . CARDIOLOGY: DO YOU HAVE A PACEMAKER OR DEFIBRILLATOR? NO . RESPIRATORY: HAVE YOU BEEN SICK IN THE PAST WEEK? NO . FEVER NO . FLU LIKE SYMPTOMS? NO . COUGH NO . INTEGUMENTARY: DO YOU HAVE ANY RASHES OR OPEN SORES? NO . ALLERGIC/IMMUNO: ARE YOU ALLERGIC TO IV DYE? NO . ANY NEW ALLERGIES? NO . PSYCHIATRIC: DO YOU HAVE THOUGHTS OF HURTING YOURSELF OR SOMEONE ELSE? NO . ARE YOU ABUSED, NEGLECTED, OR IN AN UNSAFE ENVIRONMENT? NO . ENDOCRINOLOGY: ARE YOU DIABETIC? NO . OTHER: DO YOU NEED ANY PRESCRIPTIONS? IBUPROFEN AND OXYCODONE, PT NEEDS SCRIPT FILLED IN [place] [facility] . IF YES, PLEASE LIST: ____ . ANY NEW PROBLEMS WITH YOUR MEDICATIONS? NO . WHEN DID YOU LAST EAT? ____ . WHEN DID YOU LAST DRINK? ____ . WHAT DID YOU LAST DRINK? ____ . NAME OF PERSON DRIVING YOU HOME? ____ . DO YOU HAVE ANY OTHER QUESTIONS OR CONCERNS NO . VITAL SIGNS WT 107.8 LBS, HT 61 IN, BMI 20.37 INDEX, BP 120/76 MM HG, HR 73 /MIN, RR 16 /MIN, TEMP 97.1 F, OXYGEN SAT % 99%, SAFE IN ENV? (Y/N) Y, NA INITIALS VT 14:50, REVIEWED BY: PAZ. EXAMINATION GENERAL EXAMINATION: GENERALNO ACUTE DISTRESS, WELL NOURISHED AND HYDRATED. PSYCHAPPROPRIATE MOOD AND AFFECT . LUNGS:CLEAR TO AUSCULTATION BILATERALLY, NO WHEEZES, RHONCHI, RALES. HEART:NO MURMURS, REGULAR RATE AND RHYTHM. ASSESSMENTS POSTLAMINECTOMY SYNDROME, NOT ELSEWHERE CLASSIFIED - M96.1 (PRIMARY) INTERVERTEBRAL DISC DISORDERS WITH RADICULOPATHY, LUMBOSACRAL REGION - M51.17 TREATMENT POSTLAMINECTOMY SYNDROME, NOT ELSEWHERE CLASSIFIED REFILL IBUPROFEN TABLET, 800 MG, 1 TABLET, ORALLY WITH FOOD, THREE TIMES A DAY PRN FOR PAIN MDD3, 30 DAY(S), 90, REFILLS 0 REFILL OXYCODONE HCL TABLET, 10 MG, 1, ORALLY, Q4H PRN PAIN MDD5, 30 DAYS, 150, REFILLS 0 CLINICAL NOTES: 54-YEAR-OLD FEMALE IN FOR CHRONIC PAIN FOLLOW-UP. GIVEN PRESENTING SYMPTOMS AND RESULTS OF PHYSICAL EXAMINATION RECOMMENDED CONTINUATION OF CURRENT MEDICATION REGIMEN WITH FOLLOW-UP ON PATIENT RETURNS FROM [place]. PATIENT HAS EXPRESSED UNDERSTANDING OF AND WAS IN AGREEMENT WITH TREATMENT PLAN. GIVEN TIME TO ASK QUESTIONS AND EXPRESS CONCERNS., ISTOP REGISTRY REVIEWED AND DEMONSTRATES COMPLLIANCE. (REF # [id number] ) BRINGS IN MEDICATIONS WHICH IS APPROPRIATE FOR WHAT WAS DISPENSED. RECENT URINE TOXICOLOGY REVIEWED. NO UNAUTHORIZED MEDICATIONS. NO ILLICIT SUBSTANCES AND PRESCRIBED MEDICATIONS WERE PRESENT. PROCEDURE CODES FA211 ESTABILISHED PATIENT [facility] CHARGE DISPOSITION & COMMUNICATION ELECTRONICALLY SIGNED BY ALFREDO PRESTON ON 04/19/2019 AT 08:43 AM EDT DISCLAIMER : THIS IS A VISIT SUMMARY EXTRACTED FROM THE [employer] CHART. IT IS NOT A COPY OF THE [employer] PROGRESS NOTE. MARTIN
== END ==
LOC: M PAIN 14:15
PROVIDERS: ATTEND Family Medicine
DX: M96.1 Postlaminectomy syndrome, not elsewhere classified (principal); M51.17 Intervertebral disc disorders with radiculopathy, lumbosacral region; F17.210 Nicotine dependence, cigarettes, uncomplicated; Z88.2 Allergy status to sulfonamides; Z88.8 Allergy status to other drugs, medicaments and biological substances; Z79.891 Long term (current) use of opiate analgesic; Z79.899 Other long term (current) drug therapy

== ENCOUNTER → 2019-04-23 | Outpatient (CLI) | payer MEDICARE, SELFPAY ==
--- NOTE | 2019-04-27 23:42 | ECWPNPC ---
PATIENT NAME: SHARI ALVARADO : 1965 GENDER: FEMALE VISIT DATE: 04/23/2019 DISCHARGE DATE: 04/23/19 1603 VISIT LOCKED DATE TIME: PHYSICIAN: TONIA LAGUERRE RESOURCE: TONIA LAGUERRE REASON FOR APPOINTMENT 1. PER DR Triana- DISCUSS URINE TOX? HISTORY OF PRESENT ILLNESS HISTORY OF PRESENT ILLNESS: PAIN THE PATIENT DESCRIBES THE PAIN... 54-YEAR-OLD FEMALE IN FOR REVIEW RECENT URINE TOX RESULTS. LAST URINE TOX REVEALED BUPENORPHINE WAS PRESENT IN PATIENTS URINE. SHE DENIES TAKING BUPENORPHINE FURTHER STATING THAT SHE HAS NO IDEA WHAT THE MEDICATION EVEN IS. SHE DOES ADMIT TO STARTING CELEXA RECENTLY AND ALSO OTC CBD OIL. FALL RISK SCREENING: SCREENING :NO FALLS REPORTED IN THE LAST YEAR CURRENT MEDICATIONS TAKING GABAPENTIN 800 MG TABLET 1 TABLET ORALLY THREE TIMES A DAY FOR PAIN TAKING CYCLOBENZAPRINE HCL 10 MG TABLET 1 TABLET ORALLY FOR SPASMS AND PAIN WORKERS COMPENSATION BEFORE BEDTIME CAN REPEAT IN 4 HRS MDD2 TAKING IBUPROFEN 800 MG TABLET 1 TABLET ORALLY WITH FOOD THREE TIMES A DAY PRN FOR PAIN MDD3 TAKING OXYCODONE HCL 10 MG TABLET 1 ORALLY Q4H PRN PAIN MDD5 TAKING CITALOPRAM HYDROBROMIDE 10 MG TABLET 1 TABLET ORALLY ONCE A DAY TAKING MAY USE CBD TABLETS 1 TAB ORALLY TWICE DAILY NEEDED NOT-TAKING XTAMPZA ER 18 MG CAPSULE ER 12 HOUR ABUSE-DETERRENT 1 CAPSULE WITH FOOD ORALLY FOR PAIN EVERY 12 HRS MDD2 MEDICATION LIST REVIEWED AND RECONCILED WITH THE PATIENT PAST MEDICAL HISTORY CHRONIC LOW BACK AND LEG PAIN DEPRESSION ALLERGIES SULFA (FOR ALLERGY USE ONLY): HIVES CYMBALTA: DIARRHEA, ABDOMINAL PAIN - SIDE EFFECTS SURGICAL HISTORY LUMBAR FUSION 2006 OVARIAN CYST REMOVAL 1996 TUBAL LIGATION 1987 FAMILY HISTORY FATHER: ALIVE 77 YRS, SKIN CA, DIAGNOSED WITH HYPERTENSION, UNSPECIFIED HEART DISEASE, OTHER MALIGNANT NEOPLASM OF UNSPECIFIED SITE MOTHER: ALIVE 77 YRS, SKIN CA, OTHER MALIGNANT NEOPLASM OF UNSPECIFIED SITE SIBLINGS: ALIVE SON(S): ALIVE 2 BROTHER(S) , 3 SISTER(S) . 3 SON(S) - HEALTHY. ALL SIBLINGS HAVE HTN1 SISTER AND 1 BROTHER HAVE HEART DISEASE. SOCIAL HISTORY GENERAL: TOBACCO USE ARE YOU A:CURRENT SMOKER ARE YOU INTERESTED IN QUITTING?THINKING ABOUT QUITTING WORKING WITH PCP TOWARDS QUITING PREVIOUS QUIT ATTEMPTS?NO. COUNSELED THE PATIENT ON SMOKING CESSATION, EDUCATION [id number]/30/2019 HOW MANY CIGARETTES A DAY DO YOU SMOKE?11-20 HOW SOON AFTER YOU WAKE UP DO YOU SMOKE YOUR FIRST CIGARETTE?WITHIN 5 MIN HOW OFTEN DO YOU SMOKE CIGARETTES?EVERY DAY PATIENT COUNSELED ON THE DANGERS OF TOBACCO USE AND URGED TO QUIT:04/23/2019 DIET: REGULAR. LANGUAGE LANGUAGES SPOKEN:[place] DOMESTIC VIOLENCE DO YOU FEEL SAFE IN YOUR ENVIRONMENT?YES RECREATIONAL DRUG USE DRUG USE? NO. EXERCISE: NONE. LEARNING BARRIERS / SPECIAL NEEDS BARRIERS TO LEARNING?NO HEARING IMPAIRED?NO VISION IMPAIRED?YES :CORRECTIVE LENSES COGNITIVELY IMPAIRED?NO READINESS TO LEARN?YES LEARNING PREFERENCES?NO LEARNING CAPABILITIES PRESENT?YES EMOTIONAL BARRIERS?NO SPECIAL DEVICES?YES : OCC. CANE TOE POUNDER NEEDED?NO PAIN CLINIC PFS, CLERGY, PUBLIC HEALTH REFERRALS PFS REFERRAL NEEDED?NO CLERGY REFERRAL NEEDED?NO PUBLIC HEALTH REFERRAL NEEDED?NO WAS THE PROVIDER NOTIFIED OF ANY PERTINENT INFO? N/A HAS THE PATIENT BEEN EDUCATED REGARDING HIS/HER PLAN OF CARE?YES HAS THE PATIENT BEEN EDUCATED REGARDING PAIN, THE RISK FOR PAIN, THE IMPORTANCE OF EFFECTIVE PAIN MANAGEMENT, AND THE PAIN ASSESSMENT PROCESS?YES LATEX QUESTIONNAIRE LATEX ALLERGY : HAVE YOU EVER DEVELOPED ANY TYPE OF REACTION AFTER HANDLING LATEX PRODUCTS SUCH RUBBER GLOVES, CONDOMS, DIAPHRAGMS, BALLOONS, SOCKS, OR UNDERWEAR?NO LATEX ALLERGY : HAVE YOU EVER DEVELOPED ANY TYPE OF REACTION DURING OR AFTER DENTAL APPOINTMENT, VAGINAL/RECTAL EXAMINATION, SURGICAL PROCEDURE, OR ANY OTHER EXPOSURE?NO LATEX RISK : HAVE YOU EVER HAD ANY DIFFICULTY BREATHING OR HIVES AFTER EATING OR HANDLING ANY FRUITS, OR VEGETABLES; SUCH KIWI, BANANAS, STONE FRUITS, OR CHESTNUTSNO LATEX RISK : DO YOU HAVE A PREVIOUS PERSONAL HISTORY OF MORE THAN NINE SURGERIES, SPINA BIFIDA, OR REPEATED CATHERIZATIONS? NO LATEX RISK : ARE YOU FREQUENTLY EXPOSED TO LATEX PRODUCTS IN YOUR OCCUPATION?NO DATE ASKED : 04/23/2019 CAFFEINE CAFFEINE USE?YES HOW OFTEN AND HOW MUCH? 3 CUPS COFFEE/DAY ADVANCE DIRECTIVE ADVANCE DIRECTIVE DISCUSSED WITH PATIENT:YES 04/23/19 PT DOES NOT HAVE ANY ADVANCE DIRECTIVES AND SHE DECLINES INFORMATION ON HCP AT THIS TIME. AD TAOIST [id number] DENOMINATIONAL MARITAL STATUS: . ALCOHOL SCREENING DID YOU HAVE A DRINK CONTAINING ALCOHOL IN THE PAST YEAR?NO POINTS0 INTERPRETATIONNEGATIVE OCCUPATION: DISABLED. REVIEWED WITH PT 05/30/18 1013 BV08/17/18 REVIEWED WITH PT. AD2/18/19 1230 REVIEWED WITH PT LAS03/27/19 1415 REVIEWED WITH PATIENT LAS. HOSPITALIZATION/MAJOR DIAGNOSTIC PROCEDURE SURGERY RELATED REVIEW OF SYSTEMS REVIEWED BY: PROVIDER: RENEE SOLORIO . CONSTITUTIONAL: ANY CHANGE IN YOUR MEDICAL CONDITION? NO . CHILLS NO . FEVER NO . INFECTION: DO YOU HAVE NEW INFECTIONS? NO . DO YOU HAVE HISTORY OF MRSA? NO . MUSCULOSKELETAL: ANY NEW PATTERNS OF PAIN OR NUMBNESS? NO . GASTROENTEROLOGY: ANY NEW CHANGE IN BOWEL CONTROL? NO . GENITOURINARY: ANY NEW CHANGE IN BLADDER CONTROL? NO . IS THERE A CHANCE YOU COULD BE ? NO . HEMATOLOGY/LYMPH: DO YOU TAKE ANY BLOOD THINNERS? (FOR EXAMPLE- COUMADIN, PLAVIX, AGGRENOX, PLATEL, PRADAXA, OR XARELTO) NO . WHEN WAS YOUR LAST DOSE? DATE: TIME: . NEUROLOGY: HAVE YOU FALLEN IN THE PAST 12 MONTHS? NO . ANY NEW EXTREMITY NUMBNESS OR WEAKNESS? NO . CARDIOLOGY: DO YOU HAVE A PACEMAKER OR DEFIBRILLATOR? NO . RESPIRATORY: HAVE YOU BEEN SICK IN THE PAST WEEK? NO . FEVER NO . FLU LIKE SYMPTOMS? NO . COUGH NO . INTEGUMENTARY: DO YOU HAVE ANY RASHES OR OPEN SORES? NO . ALLERGIC/IMMUNO: ARE YOU ALLERGIC TO IV DYE? NO . ANY NEW ALLERGIES? NO . PSYCHIATRIC: DO YOU HAVE THOUGHTS OF HURTING YOURSELF OR SOMEONE ELSE? NO . ARE YOU ABUSED, NEGLECTED, OR IN AN UNSAFE ENVIRONMENT? NO . ENDOCRINOLOGY: ARE YOU DIABETIC? NO . OTHER: DO YOU NEED ANY PRESCRIPTIONS? NO . IF YES, PLEASE LIST: ____ . ANY NEW PROBLEMS WITH YOUR MEDICATIONS? NO . WHEN DID YOU LAST EAT? ____ . WHEN DID YOU LAST DRINK? ____ . WHAT DID YOU LAST DRINK? ____ . NAME OF PERSON DRIVING YOU HOME? ____ . DO YOU HAVE ANY OTHER QUESTIONS OR CONCERNS NO . VITAL SIGNS WT 107.8 LBS, HT 61 IN, BMI 20.37 INDEX, BP 134/72 MM HG, HR 99 /MIN, RR 16 /MIN, TEMP 97.0 F, OXYGEN SAT % 98%, SAFE IN ENV? (Y/N) Y, NA INITIALS AW 1417, REVIEWED BY: AD. EXAMINATION GENERAL EXAMINATION: GENERALNO ACUTE DISTRESS, WELL NOURISHED AND HYDRATED. PSYCHAPPROPRIATE MOOD AND AFFECT . LUNGS:CLEAR TO AUSCULTATION BILATERALLY, NO WHEEZES, RHONCHI, RALES. HEART:NO MURMURS, REGULAR RATE AND RHYTHM. ASSESSMENTS LUMBAR RADICULOPATHY - M54.16 (PRIMARY) INTERVERTEBRAL DISC DISORDERS WITH RADICULOPATHY, LUMBAR REGION - M51.16 TREATMENT LUMBAR RADICULOPATHY CLINICAL NOTES: 54-YEAR-OLD FEMALE WHO IS FOUND TEST POSITIVE FOR BUPENOPRHINE IN HER LAST URINE TOX IN TODAY TO DISCUSS RESULTS. RESULTS WERE DISCUSSED WITH PATIENT AND SHE IS ADAMANT THAT SHE HAS NO IDEA WHERE THE BUPENORPHINE CAME FROM SHE STATES SHE DOES NOT KNOW WHAT THE MEDICATION IS NOR HAS SHE TAKEN IT PREVIOUSLY. SHE DOES ADMIT TO STARTING CELEXA AND OTC CBD OIL RECENTLY. WHEN ASKED SHE STATES THE CBD OIL AFTER TAKING IT MADE HER FEEL WOOZY. DISCUSSED RESULTS WITH LOG SCALER WHO STATES WHILE IT IS UNLIKELY THERE IS A POSSIBILITY OF THE CBD OIL BEING LACED WITH BUPENOPRHINE. PATIENT STATES SHE HAS STOPPED TAKING CBD PRODUCT SHE RAN OUT. HER LAST DOSE OF CBD PER HER REPORT WAS 04/15/19. IT WAS DECIDED AFTER CONSULT WITH DR. VERNON THAT THIS PROOF TECHNICIAN HELPER WOULD PRESCRIBE PATIENT A ONE MONTH SUPPLY OF HER MEDICATION AND SHE IS TO FIND A PAIN PROVIDER DOWN IN [place] THAT IS WILLING TO CONTINUE TO MONITOR AND PRESCRIBE HER MEDICATIONS WHILE SHE IS DOWN THERE. WE WILL REPEAT HER U TOX TODAY. SHOULD BUPRENORPHINE BE PRESENT IN SECOND SAMPLE PATIENT WILL BE STARTED ON A TITRATING DOSE OF HER MEDICATION. PATIENT HAS EXPRESSED UNDERSTANDING OF AND WAS IN AGREEMENT WITH TREATMENT PLAN. GIVEN TIME TO ASK QUESTIONS AND EXPRESS CONCERNS., ISTOP REGISTRY REVIEWED AND DEMONSTRATES COMPLLIANCE. (REF # [id number] ) BRINGS IN MEDICATIONS WHICH IS APPROPRIATE FOR WHAT WAS DISPENSED. RECENT URINE TOXICOLOGY REVIEWED. NO UNAUTHORIZED MEDICATIONS. NO ILLICIT SUBSTANCES AND PRESCRIBED MEDICATIONS WERE PRESENT. PROCEDURE CODES FA211 ESTABILISHED PATIENT [facility] CHARGE DISPOSITION & COMMUNICATION ELECTRONICALLY SIGNED BY ALFREDO PRESTON ON 04/27/2019 AT 12:57 PM EDT DISCLAIMER : THIS IS A VISIT SUMMARY EXTRACTED FROM THE [employer] CHART. IT IS NOT A COPY OF THE [employer] PROGRESS NOTE. MARTIN
== END ==
LOC: M PAIN 14:00
PROVIDERS: ATTEND Family Medicine
DX: M51.16 Intervertebral disc disorders with radiculopathy, lumbar region (principal); Z86.59 Personal history of other mental and behavioral disorders; F17.210 Nicotine dependence, cigarettes, uncomplicated; Z88.2 Allergy status to sulfonamides; Z88.8 Allergy status to other drugs, medicaments and biological substances; Z79.891 Long term (current) use of opiate analgesic; Z79.899 Other long term (current) drug therapy

== ENCOUNTER → 2019-06-27 | Outpatient (CLI) | payer SELFPAY ==
--- NOTE | 2019-06-29 00:53 | ECWPNPC ---
PATIENT NAME: SHARI ALVARADO : 1965 GENDER: FEMALE VISIT DATE: 06/27/2019 DISCHARGE DATE: 06/27/19 1447 VISIT LOCKED DATE TIME: PHYSICIAN: TONIA LAGUERRE RESOURCE: TONIA LAGUERRE REASON FOR APPOINTMENT 1. BACK HISTORY OF PRESENT ILLNESS HISTORY OF PRESENT ILLNESS: PAIN THE PATIENT DESCRIBES THE PAIN... 54-YEAR-OLD FEMALE IN FOR CHRONIC PAIN FOLLOW-UP. AT LAST CLINIC VISIT PATIENT'S U TOX WAS FOUND TO HAVE BUPRENORPHINE IN IT AND A SUBSEQUENT U TOX WAS PERFORMED AND THE BUPENORPHINE WAS AGAIN PRESENT HOWEVER IT WAS PRESENT AT A MUCH SMALLER DOSAGE. SHE RATES HER PAIN CURRENTLY AT AN 8.5 OUT OF 10 AND DESCRIBES IT SHARP, BURNING, STABBING, TENDER, AND SHOOTING. PATIENT HAS GONE TO [place] SHE DOES EVERY WINTER HOWEVER SHE WAS UNABLE TO FIND A PAIN CENTER DOWN THERE THAT WAS WILLING TO TAKE HER ON A PATIENT. FALL RISK SCREENING: SCREENING :NO FALLS REPORTED IN THE LAST YEAR CURRENT MEDICATIONS TAKING GABAPENTIN 800 MG TABLET 1 TABLET ORALLY THREE TIMES A DAY FOR PAIN TAKING CYCLOBENZAPRINE HCL 10 MG TABLET 1 TABLET ORALLY FOR SPASMS AND PAIN WORKERS COMPENSATION BEFORE BEDTIME CAN REPEAT IN 4 HRS MDD2 TAKING IBUPROFEN 800 MG TABLET 1 TABLET ORALLY WITH FOOD THREE TIMES A DAY PRN FOR PAIN MDD3 TAKING OXYCODONE HCL 10 MG TABLET 1 ORALLY Q4H PRN PAIN MDD5 NOT-TAKING CITALOPRAM HYDROBROMIDE 10 MG TABLET 1 TABLET ORALLY ONCE A DAY NOT-TAKING MAY USE CBD TABLETS 1 TAB ORALLY TWICE DAILY NEEDED NOT-TAKING XTAMPZA ER 18 MG CAPSULE ER 12 HOUR ABUSE-DETERRENT 1 CAPSULE WITH FOOD ORALLY FOR PAIN EVERY 12 HRS MDD2 MEDICATION LIST REVIEWED AND RECONCILED WITH THE PATIENT PAST MEDICAL HISTORY CHRONIC LOW BACK AND LEG PAIN DEPRESSION ALLERGIES SULFA (FOR ALLERGY USE ONLY): HIVES CYMBALTA: DIARRHEA, ABDOMINAL PAIN - SIDE EFFECTS SURGICAL HISTORY LUMBAR FUSION 2006 OVARIAN CYST REMOVAL 1996 TUBAL LIGATION 1987 FAMILY HISTORY FATHER: ALIVE 77 YRS, SKIN CA, DIAGNOSED WITH HYPERTENSION, UNSPECIFIED HEART DISEASE, OTHER MALIGNANT NEOPLASM OF UNSPECIFIED SITE MOTHER: ALIVE 77 YRS, SKIN CA, OTHER MALIGNANT NEOPLASM OF UNSPECIFIED SITE SIBLINGS: ALIVE SON(S): ALIVE 2 BROTHER(S) , 3 SISTER(S) . 3 SON(S) - HEALTHY. ALL SIBLINGS HAVE HTN1 SISTER AND 1 BROTHER HAVE HEART DISEASE. SOCIAL HISTORY GENERAL: TOBACCO USE ARE YOU A:CURRENT SMOKER ARE YOU INTERESTED IN QUITTING?THINKING ABOUT QUITTING WORKING WITH PCP TOWARDS QUITING PREVIOUS QUIT ATTEMPTS?NO. COUNSELED THE PATIENT ON SMOKING CESSATION, EDUCATION QLTMLPRS29/04/2019 HOW MANY CIGARETTES A DAY DO YOU SMOKE?11-20 HOW SOON AFTER YOU WAKE UP DO YOU SMOKE YOUR FIRST CIGARETTE?WITHIN 5 MIN HOW OFTEN DO YOU SMOKE CIGARETTES?EVERY DAY PATIENT COUNSELED ON THE DANGERS OF TOBACCO USE AND URGED TO QUIT:06/27/2019 DIET: REGULAR. LANGUAGE LANGUAGES SPOKEN:PERSIAN DOMESTIC VIOLENCE DO YOU FEEL SAFE IN YOUR ENVIRONMENT?YES RECREATIONAL DRUG USE DRUG USE? NO. EXERCISE: NONE. LEARNING BARRIERS / SPECIAL NEEDS BARRIERS TO LEARNING?NO HEARING IMPAIRED?NO VISION IMPAIRED?YES :CORRECTIVE LENSES COGNITIVELY IMPAIRED?NO READINESS TO LEARN?YES LEARNING PREFERENCES?NO LEARNING CAPABILITIES PRESENT?YES EMOTIONAL BARRIERS?NO SPECIAL DEVICES?YES : OCC. 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 N/A HAS THE PATIENT BEEN EDUCATED REGARDING HIS/HER PLAN OF CARE?YES HAS THE PATIENT BEEN EDUCATED REGARDING PAIN, THE RISK FOR PAIN, THE IMPORTANCE OF EFFECTIVE PAIN MANAGEMENT, AND THE PAIN ASSESSMENT PROCESS?YES LATEX QUESTIONNAIRE LATEX ALLERGY : HAVE YOU EVER DEVELOPED ANY TYPE OF REACTION AFTER HANDLING LATEX PRODUCTS SUCH RUBBER GLOVES, CONDOMS, DIAPHRAGMS, BALLOONS, SOCKS, OR UNDERWEAR?NO LATEX ALLERGY : HAVE YOU EVER DEVELOPED ANY TYPE OF REACTION DURING OR AFTER DENTAL APPOINTMENT, VAGINAL/RECTAL EXAMINATION, SURGICAL PROCEDURE, OR ANY OTHER EXPOSURE?NO LATEX RISK : HAVE YOU EVER HAD ANY DIFFICULTY BREATHING OR HIVES AFTER EATING OR HANDLING ANY FRUITS, OR VEGETABLES; SUCH KIWI, BANANAS, STONE FRUITS, OR CHESTNUTSNO LATEX RISK : DO YOU HAVE A PREVIOUS PERSONAL HISTORY OF MORE THAN NINE SURGERIES, SPINA BIFIDA, OR REPEATED CATHERIZATIONS? NO LATEX RISK : ARE YOU FREQUENTLY EXPOSED TO LATEX PRODUCTS IN YOUR OCCUPATION?NO DATE ASKED : 06/27/2019 CAFFEINE CAFFEINE USE?YES HOW OFTEN AND HOW MUCH? 3 CUPS COFFEE/DAY ADVANCE DIRECTIVE ADVANCE DIRECTIVE DISCUSSED WITH PATIENT:YES 06/27/19 PT DOES NOT HAVE ANY ADVANCE DIRECTIVES. HCP INFORMATION WAS GIVEN TO AND ASSISTANCE OFFERED IN COMPLETING THE FORM. AD MORMON [id number] MARITAL STATUS: . ALCOHOL SCREENING DID YOU HAVE A DRINK CONTAINING ALCOHOL IN THE PAST YEAR?NO POINTS0 INTERPRETATIONNEGATIVE OCCUPATION: DISABLED. REVIEWED WITH PT 05/30/18 1013 BV08/17/18 REVIEWED WITH PT. AD09/11/18 1230 REVIEWED WITH PT LAS03/27/19 1415 REVIEWED WITH PATIENT LA06/27/19 REVIEWED WITH PT. AD. HOSPITALIZATION/MAJOR DIAGNOSTIC PROCEDURE SURGERY RELATED REVIEW OF SYSTEMS REVIEWED BY: PROVIDER: RENEE LAGUERRE MIXER PIGMENT-C . CONSTITUTIONAL: ANY CHANGE IN YOUR MEDICAL CONDITION? NO . CHILLS NO . FEVER NO . INFECTION: DO YOU HAVE NEW INFECTIONS? NO . DO YOU HAVE HISTORY OF MRSA? NO . MUSCULOSKELETAL: ANY NEW PATTERNS OF PAIN OR NUMBNESS? NO . GASTROENTEROLOGY: ANY NEW CHANGE IN BOWEL CONTROL? NO . GENITOURINARY: ANY NEW CHANGE IN BLADDER CONTROL? NO . IS THERE A CHANCE YOU COULD BE ? NO . HEMATOLOGY/LYMPH: DO YOU TAKE ANY BLOOD THINNERS? (FOR EXAMPLE- COUMADIN, PLAVIX, AGGRENOX, PLATEL, PRADAXA, OR XARELTO) NO . WHEN WAS YOUR LAST DOSE? DATE: TIME: . NEUROLOGY: HAVE YOU FALLEN IN THE PAST 12 MONTHS? NO . ANY NEW EXTREMITY NUMBNESS OR WEAKNESS? NO . CARDIOLOGY: DO YOU HAVE A PACEMAKER OR DEFIBRILLATOR? NO . RESPIRATORY: HAVE YOU BEEN SICK IN THE PAST WEEK? NO . FEVER NO . FLU LIKE SYMPTOMS? NO . COUGH NO . INTEGUMENTARY: DO YOU HAVE ANY RASHES OR OPEN SORES? NO . ALLERGIC/IMMUNO: ARE YOU ALLERGIC TO IV DYE? NO . ANY NEW ALLERGIES? NO . PSYCHIATRIC: DO YOU HAVE THOUGHTS OF HURTING YOURSELF OR SOMEONE ELSE? NO . ARE YOU ABUSED, NEGLECTED, OR IN AN UNSAFE ENVIRONMENT? NO . ENDOCRINOLOGY: ARE YOU DIABETIC? NO . OTHER: DO YOU NEED ANY PRESCRIPTIONS? YES . IF YES, PLEASE LIST: OXYCODONE, IBUPROFEN . ANY NEW PROBLEMS WITH YOUR MEDICATIONS? NO . WHEN DID YOU LAST EAT? ____ . WHEN DID YOU LAST DRINK? ____ . WHAT DID YOU LAST DRINK? ____ . NAME OF PERSON DRIVING YOU HOME? ____ . DO YOU HAVE ANY OTHER QUESTIONS OR CONCERNS NO . VITAL SIGNS WT 100.2 LBS, HT 61 IN, BMI 18.93 INDEX, BP 120/81 MM HG, HR 95 /MIN, RR 16 /MIN, TEMP 97.5 F, OXYGEN SAT % 95%, SAFE IN ENV? (Y/N) Y, NA INITIALS UT 13:54, REVIEWED BY: TREY. EXAMINATION GENERAL EXAMINATION: GENERALNO ACUTE DISTRESS, WELL NOURISHED AND HYDRATED. PSYCHAPPROPRIATE MOOD AND AFFECT . LUNGS:CLEAR TO AUSCULTATION BILATERALLY, NO WHEEZES, RHONCHI, RALES. HEART:NO MURMURS, REGULAR RATE AND RHYTHM. ASSESSMENTS INTERVERTEBRAL DISC DISORDERS WITH RADICULOPATHY, LUMBAR REGION - M51.16 (PRIMARY) TREATMENT INTERVERTEBRAL DISC DISORDERS WITH RADICULOPATHY, LUMBAR REGION REFILL OXYCODONE HCL TABLET, 10 MG, 1, ORALLY, Q4H PRN PAIN MDD5, 30 DAYS, 150, REFILLS 0 REFILL IBUPROFEN TABLET, 800 MG, 1 TABLET, ORALLY WITH FOOD, THREE TIMES A DAY PRN FOR PAIN MDD3, 30 DAY(S), 90, REFILLS 0 CLINICAL NOTES: 54-YEAR-OLD FEMALE IN FOR CHRONIC PAIN FOLLOW-UP. GIVEN PRESENTING SYMPTOMS AND RESULTS OF PHYSICAL EXAMINATION RECOMMENDED CONTINUING OXYCODONE AND TIZANIDINE, AND COMPLETING A U TOX TODAY, AND FOLLOW-UP IN 2 WEEKS. PATIENT HAS EXPRESSED UNDERSTANDING OF AND WAS IN AGREEMENT WITH TREATMENT PLAN. GIVEN TIME TO ASK QUESTIONS AND EXPRESS CONCERNS., ISTOP REGISTRY REVIEWED AND DEMONSTRATES COMPLLIANCE. (REF # [id number] ) BRINGS IN MEDICATIONS WHICH IS APPROPRIATE FOR WHAT WAS DISPENSED. RECENT URINE TOXICOLOGY REVIEWED. NO UNAUTHORIZED MEDICATIONS. NO ILLICIT SUBSTANCES AND PRESCRIBED MEDICATIONS WERE PRESENT. PROCEDURE CODES [id number] ESTABILISHED PATIENT [facility] CHARGE DISPOSITION & COMMUNICATION FOLLOW UP 2 WEEKS (REASON: BACK PAIN) ELECTRONICALLY SIGNED BY ALFREDO PRESTON ON 06/28/2019 AT 01:21 PM EST DISCLAIMER : THIS IS A VISIT SUMMARY EXTRACTED FROM THE [employer] CHART. IT IS NOT A COPY OF THE [employer] PROGRESS NOTE. MARTIN
== END ==
LOC: M PAIN 13:45
PROVIDERS: ATTEND Family Medicine
DX: M51.16 Intervertebral disc disorders with radiculopathy, lumbar region (principal); G89.29 Other chronic pain; Z86.59 Personal history of other mental and behavioral disorders; F17.210 Nicotine dependence, cigarettes, uncomplicated; Z88.0 Allergy status to penicillin; Z88.8 Allergy status to other drugs, medicaments and biological substances; Z79.891 Long term (current) use of opiate analgesic; Z79.899 Other long term (current) drug therapy

== ENCOUNTER 2023-12-14 12:49 | Day surgery (SDC) | payer MEDICARE ==
[~2023-12-14] VITALS: Ht 154.9 cm; Wt 44.3 kg
[~2023-12-14 12:49] MED LIST changes: +GABA800T4 PO; +NS 1,000 ML IV ONE; +OMEP-173 PO; +OXYC20TA2
[2023-12-14] MEDS ORDERED: propofoL 200 MG/20 ML VIAL As Ordered ONE (14:16)
[2023-12-14] MEDS ORDERED: LIDOCAINE 2% 100MG/5ML SDV (FOR ANES.) As Ordered ONE (14:16)
[2023-12-14] MEDS ORDERED: fentaNYL 100 MCG/2 ML INJECTION As Ordered ONE (14:16)
[2023-12-14 15:00] VITALS: TEMP 97.4
[2023-12-14 15:18] VITALS: BP 129/95; O2SAT 97
== END 2023-12-14 15:27 | disposition home or self-care (01) ==
LOC: M OPP 12:49
PROVIDERS: ATTEND Internal Medicine Gastroenterology
DX: Z12.11 Encounter for screening for malignant neoplasm of colon (principal); D12.6 Benign neoplasm of colon, unspecified; K64.0 First degree hemorrhoids; K57.30 Diverticulosis of large intestine without perforation or abscess without bleeding; K22.89 Other specified disease of esophagus; R13.10 Dysphagia, unspecified; F17.200 Nicotine dependence, unspecified, uncomplicated; Z79.1 Long term (current) use of non-steroidal anti-inflammatories (NSAID); Z79.2 Long term (current) use of antibiotics; Z79.891 Long term (current) use of opiate analgesic; Z88.2 Allergy status to sulfonamides; Z79.899 Other long term (current) drug therapy
CPT/HCPCS: 43249; 45385; 88305; J3010